=== PATIENT | female | born 1955 | race African-American/Black ===

== ENCOUNTER 2017-07-16 11:23 | Emergency (ER) | payer OTHER ==
[~2017-07-16] VITALS: Ht 162.6 cm; Wt 47.7 kg
[~2017-07-16 11:23] MED LIST: AMLO10TA55 PO; ASPI-1198 PO; CALC650T19 PO; CARV3.1231 PO; CLON1TAB4 PO; DOCU250C16 PO; LISI40TA4 PO; METF1000 PO; RISP2 PO; SIMV10TA6 PO; ZIPR60CA2 PO
[2017-07-16 11:57] LABS: GLUCOSE,POINT OF CARE 122 MG/DL (70-110)
[2017-07-16] MEDS ORDERED: SITA100 PO (12:03)
[2017-07-16] MEDS ORDERED: MEGE40 PO (12:03)
[2017-07-16] MEDS ORDERED: TRAZ-144 PO (12:03)
[2017-07-16] MEDS ORDERED: GLIP10 PO (12:03)
[2017-07-16] MEDS ORDERED: INSU100V12 SQ (12:03)
[2017-07-16 13:19] VITALS: BP 125/78
== END 2017-07-16 13:31 | disposition home or self-care (01) ==
LOC: EMS 11:25
DX: R13.10 Dysphagia, unspecified (principal); E11.9 Type 2 diabetes mellitus without complications; I10 Essential (primary) hypertension; F20.9 Schizophrenia, unspecified; Z85.07 Personal history of malignant neoplasm of pancreas; Z88.2 Allergy status to sulfonamides; Z79.4 Long term (current) use of insulin; Z79.82 Long term (current) use of aspirin
CPT/HCPCS: 82962; 99282

== ENCOUNTER 2017-12-25 11:56 | Emergency (ER) | payer OTHER ==
[~2017-12-25] VITALS: Ht 162.6 cm; Wt 49.1 kg
[~2017-12-25 11:56] MED LIST changes: -CALC650T19 PO; -CLON1TAB4 PO; -DOCU250C16 PO; +GLIP10 PO; +INSU100V12 SQ; +MEGE40 PO; +SITA100 PO; +TRAZ-144 PO; -ZIPR60CA2 PO
[2017-12-25 12:34] LABS: GLUCOSE,POINT OF CARE 214 MG/DL (70-110)
[2017-12-25 14:05] VITALS: BP 125/69
== END 2017-12-25 14:05 | disposition home or self-care (01) ==
LOC: EMS 12:07
DX: R07.9 Chest pain, unspecified (principal); R05 Cough; E11.9 Type 2 diabetes mellitus without complications; I10 Essential (primary) hypertension; F20.9 Schizophrenia, unspecified; Z88.2 Allergy status to sulfonamides; Z79.82 Long term (current) use of aspirin; Z79.899 Other long term (current) drug therapy
CPT/HCPCS: 71046; 99284

== ENCOUNTER 2018-02-04 12:04 | Emergency (ER) | payer OTHER ==
[~2018-02-04] VITALS: Ht 162.6 cm; Wt 45.5 kg
[~2018-02-04 12:04] MED LIST changes: -TRAZ-144 PO; +TRAZ-219 PO
[2018-02-04 13:07] VITALS: BP 132/76
[2018-02-04 13:14] LABS: GLUCOSE,POINT OF CARE 190 MG/DL (70-110)
== END 2018-02-04 14:46 | disposition home or self-care (01) ==
LOC: EMS 12:05
DX: F22 Delusional disorders (principal); E11.9 Type 2 diabetes mellitus without complications; I10 Essential (primary) hypertension; Z88.2 Allergy status to sulfonamides
CPT/HCPCS: 82948; 99283

== ENCOUNTER 2019-07-13 23:11 | Inpatient (IN) | payer OTHER ==
[~2019-07-13] VITALS: Ht 154.9 cm; Wt 40.0 kg
[~2019-07-13 23:11] MED LIST changes: -AMLO10TA55 PO; -CARV3.1231 PO; -GLIP10 PO; -INSU100V12 SQ; -LISI40TA4 PO; -MEGE40 PO; -METF1000 PO; -RISP2 PO; -SIMV10TA6 PO; +SIMV10TA97 PO; -SITA100 PO; -TRAZ-219 PO; +TRAZ-252 PO
[2019-07-13] MEDS ORDERED: LISI10TA7 PO (23:43)
[2019-07-13] MEDS ORDERED: AMLO10TA55 PO (23:43)
[2019-07-13] MEDS ORDERED: GLIP5TAB11 PO (23:43)
[2019-07-14] MEDS ORDERED: SODIUM CHLORIDE IV ONE ×2 (00:15)
[2019-07-14 00:22] LABS: GLUCOSE,POINT OF CARE > 600 MG/DL (70-110)
[2019-07-14 00:32] LABS: BASOPHILS % (AUTO) 0.6 % (0.0-2.0); EOSINOPHILS % (AUTO) 0 % (1.0-6.0); HEMATOCRIT 40.4 % (36-46); HEMOGLOBIN 12.9 g/dL (12.0-16.0); LYMPHOCYTES # (AUTO) 0.8 K/uL (1.0-4.8); LYMPHOCYTES % (AUTO) 3.5 % (22.0-44.0); MEAN CORPUSCULAR HEMOGLOBIN 29.2 pg (26.0-34.0); MEAN CORPUSCULAR HGB CONC 31.8 G/dL (31.0-37.0); MEAN CORPUSCULAR VOLUME 92 fL (80-100); MONOCYTES % (AUTO) 4.5 % (2.0-9.0); NEUTROPHILS # (AUTO) 20.4 K/uL (1.8-7.7); PLATELET COUNT (AUTO) 427 K/uL (150-450)
[2019-07-14 00:33] LABS: NEUTROPHILS % (AUTO) 91.4 % (40.0-70.0)
[2019-07-14 00:40] LABS: AMPHET/METH SCREEN,URINE NEGATIVE (NEGATIVE); BARBITURATE SCREEN, URINE NEGATIVE (NEGATIVE); BENZODIAZEPINES SCREEN,URINE NEGATIVE (NEGATIVE); CANNABINOID SCREEN,URINE NEGATIVE (NEGATIVE); COCAINE SCREEN,URINE NEGATIVE (NEGATIVE); METHADONE SCREEN, URINE NEGATIVE (NEGATIVE); OPIATE SCREEN,URINE NEGATIVE (NEGATIVE)
[2019-07-14 00:40] LABS: ABG A-A DIFF O2 20.1 mmHg (10-20.0); ABG BASE EXCESS -4.5 mmol/L (-2.0-3.0); ABG CARBOXYHEMOGLOBIN 1.9 % (0.0-1.5); ABG HCO3 21.1 mmol/L (22.0-26.0); ABG METHEMOGLOBIN 0.1 % (0.0-1.5); ABG OXYGEN CONTENT 16.7 mL/dL (15.0-23.0); ABG OXYGEN SATURATION 95.7 % (95.0-98.0); ABG OXYHEMOGLOBIN 93.8 % (94.0-100.0); ABG PCO2 38 mmHg (35-45); ABG TOTAL HEMOGLOBIN 12.6 G/dL (12.0-18.0); PO2, ARTERIAL BG 84.2 mmHg (79.0-87.0); SOURCE, BLOOD GAS ARTERIAL; TEMPERATURE, FAHRENHEIT, BG 98.6 FAHREN (96.0-98.6)
[2019-07-14 00:41] LABS: O2 DEVICE,BLOOD GAS ROOM AIR (ROOM AIR); SITE, BLOOD GAS RT RADIAL
[2019-07-14 00:43] LABS: INR 1.1 (0.9-1.1)
[2019-07-14 00:45] LABS: APPEARANCE,URINE CLEAR (CLEAR); BILIRUBIN,URINE NEGATIVE (NEGATIVE); GLUCOSE, URINE (UA) >=1000 mg/dL (NEGATIVE); KETONES,URINE 15 mg/dL (NEGATIVE); LEUKOCYTE ESTERASE ,URINE NEGATIVE (NEGATIVE); NITRATE,URINE NEGATIVE (NEGATIVE); OCCULT BLOOD,URINE TRACE (NEGATIVE); PROTEIN,URINE POS 1+ (NEGATIVE); UROBILINOGEN,URINE 0.2 mg/dL (<=1.0)
[2019-07-14] MEDS ORDERED: HALOPERIDOL LACTATE 5 MG/ML VIAL IM ONE (00:45)
[2019-07-14 00:46] LABS: PHENCYCLIDINE SCREEN,URINE NEGATIVE (NEGATIVE)
[2019-07-14 00:55] LABS: BACTERIA,URINE None Seen /HPF (None Seen); RBC,URINE 0-2 /HPF (0-2); SQUAMOUS EPITHELIAL CELL,UR Rare /LPF (None Seen); WBC,URINE 0-2 /HPF (0-5)
[2019-07-14 01:00] LABS: ALBUMIN 3.7 g/dL (3.4-5.0); BILIRUBIN,TOTAL 0.3 mg/dL (0.1-1.0); CALCIUM, TOTAL 10.2 mg/dL (8.8-10.5); CREATININE 1.21 mg/dL (0.60-1.30); MAGNESIUM 2.5 mg/dL (1.80-2.40); POTASSIUM 4.7 mmol/L (3.5-5.1); TOTAL PROTEIN, SERUM 8.4 g/dL (6.4-8.2)
[2019-07-14 01:01] LABS: LACTIC ACID 2.6 mmol/L (0.4-2.0)
[2019-07-14] MEDS ORDERED: INSULIN REGULAR, HUMAN 100 UNITS/ML SQ ONE (01:30)
[2019-07-14] MEDS ORDERED: VANCOMYCIN HCL 1 GM/D5% WATER 200 ML IV ONE (01:30)
[2019-07-14] MEDS ORDERED: VANCOMYCIN HCL 750 MG in DEXTROSE 5%-WATER 250 ML IV ONE (01:30)
[2019-07-14] MEDS ORDERED: PIPERACILLIN/TAZO 3.375 GM/D5W 50 ML IV ONE (01:30)
[2019-07-14] MEDS ORDERED: ACETAMINOPHEN 650 MG RECTAL SUPPOSITORY PR ONE ×2 (03:00→08:00)
[2019-07-14] MEDS ORDERED: CefTRIAXone SODIUM 2 GM in DEXTROSE 5%-WATER 50 ML IV ONE (03:00)
[2019-07-14 03:07] LABS: GLUCOSE,POINT OF CARE 560 MG/DL (70-110)
[2019-07-14 03:39] LABS: INFLUENZA TYPE A NEGATIVE FOR TYPE A (NEGATIVE); INFLUENZA TYPE B NEGATIVE FOR TYPE B (NEGATIVE)
[2019-07-14] MEDS ORDERED: MIDAZOLAM HCL 2 MG/2 ML VIAL IVP ONE (04:00)
[2019-07-14] MEDS ORDERED: 0.9% SODIUM CHLORIDE 10 ML SYRINGE IVP PRN (05:30)
[2019-07-14] MEDS ORDERED: ACETAMINOPHEN 325 MG TABLET PO PRN ×2 (05:30→08:15)
[2019-07-14 05:38] LABS: GLUCOSE, CSF 408 mg/dL (50-80); TOTAL PROTEIN, CSF 120 mg/dL (15-45)
[2019-07-14 06:10] LABS: GLUCOSE,POINT OF CARE 434 MG/DL (70-110)
[2019-07-14] MEDS ORDERED: WATER IV ONE (06:30)
[2019-07-14] MEDS ORDERED: ACYCLOVIR IV ONE (06:30)
[2019-07-14] MEDS ORDERED: DEXTROSE 5% IV ONE (06:30)
[2019-07-14 06:33] LABS: APPEARANCE2,CSF CLEAR (CLEAR); COLOR2,CSF COLORLESS (COLORLESS); CSF 2ND TUBE NUMBER 4
[2019-07-14 06:44] LABS: APPEARANCE,CSF CLOUDY (CLEAR); CSF TUBE NUMBER 1
[2019-07-14 06:45] LABS: LYMPHOCYTES1,CSF 4.3 %; MONOCYTES1,CSF 1.1 %; NEUTROPHILS1,CSF 94.6 %; RED BLOOD CELL1,CSF 606.7 CMM (0-0); WHITE BLOOD CELL1,CSF 7.2 CMM (0-5)
[2019-07-14 06:47] LABS: COLOR,CSF PINK (COLORLESS)
[2019-07-14 06:48] LABS: LYMPHOCYTES2,CSF 3 %; MONOCYTES2,CSF 1 %; NEUTROPHILS2,CSF 96 %; WHITE BLOOD CELL2,CSF 6.1 CMM (0-5)
[2019-07-14] MEDS ORDERED: DEXTROSE 50%-WATER 25 GM/50 ML SYRINGE IVP PRN (08:15)
[2019-07-14] MEDS ORDERED: BISACODYL 10 MG RECTAL RECTAL SUPPOSITORY PR PRN (08:15)
[2019-07-14] MEDS: FAMOTIDINE 20 MG TABLET PO SCH (09:00)
[2019-07-14] MEDS: DOCUSATE SODIUM 100 MG CAPSULE PO SCH ×2 (09:00→21:22)
[2019-07-14] MEDS: SODIUM CHLORIDE 0.9% 1,000 ML IV SCH (09:04)
[2019-07-14] MEDS: INSULIN GLARGINE,HUM.REC.ANLOG 100 UNITS/ML SQ SCH ×2 (09:05→21:25)
[2019-07-14] MEDS: HEPARIN SODIUM,PORCINE 5,000 UNITS/ML VIAL SQ SCH ×2 (09:05→21:22)
[2019-07-14 09:25] LABS: GLUCOSE,POINT OF CARE 373 MG/DL (70-110)
[2019-07-14] MEDS: PIPERACILLIN SODIUM/TAZOBACTAM 2.25 GM in DEXTROSE 5%-WATER 50 ML IV SCH ×3 (10:10→23:42)
[2019-07-14] MEDS ORDERED: GLIP10 PO (11:12)
[2019-07-14] MEDS ORDERED: LORazepam 2 MG/ML VIAL IVP PRN (11:15)
[2019-07-14 14:30] VITALS: BP 142/83
[2019-07-14 15:01] VITALS: BP 147/72
[2019-07-14 21:29] VITALS: BP 141/86
[2019-07-14 23:49] VITALS: BP 112/53
[2019-07-15 00:45] LABS: GLUCOMETER DEV NAME(LOC) 5S.1; GLUCOSE,POINT OF CARE 221 MG/DL (70-110)
[2019-07-15] MEDS: PIPERACILLIN SODIUM/TAZOBACTAM 2.25 GM in DEXTROSE 5%-WATER 50 ML IV SCH ×4 (03:27→21:06)
[2019-07-15 04:08] LABS: GLUCOMETER DEV NAME(LOC) 5S.2A; GLUCOSE,POINT OF CARE 370 MG/DL (70-110)
[2019-07-15] MEDS: SODIUM CHLORIDE 0.9% 1,000 ML IV SCH (04:37)
[2019-07-15 04:43] VITALS: BP 124/58
[2019-07-15] MEDS: INSULIN LISPRO 100 UNITS/ML SQ PRN ×3 (06:29→20:58)
[2019-07-15 06:34] LABS: CALCIUM, TOTAL 8.3 mg/dL (8.8-10.5); CREATININE 1.16 mg/dL (0.60-1.30); POTASSIUM 3.8 mmol/L (3.5-5.1)
[2019-07-15] MEDS: DOCUSATE SODIUM 100 MG CAPSULE PO SCH ×2 (08:07→21:00)
[2019-07-15] MEDS: HEPARIN SODIUM,PORCINE 5,000 UNITS/ML VIAL SQ SCH ×2 (08:08→21:00)
[2019-07-15] MEDS: FAMOTIDINE 20 MG TABLET PO SCH (08:08)
[2019-07-15] MEDS: INSULIN GLARGINE,HUM.REC.ANLOG 100 UNITS/ML SQ SCH ×3 (08:16→20:57)
[2019-07-15] MEDS: VANCOMYCIN HCL 750 MG in DEXTROSE 5%-WATER 250 ML IV SCH (08:57)
[2019-07-15 11:06] VITALS: BP 127/71
[2019-07-15 15:21] VITALS: BP 147/77
[2019-07-15 19:15] VITALS: BP 140/74
[2019-07-15 20:34] LABS: GLUCOMETER DEV NAME(LOC) 5S.1; GLUCOSE,POINT OF CARE 114 MG/DL (70-110)
[2019-07-15 20:34] LABS: GLUCOMETER DEV NAME(LOC) 5S.1; GLUCOSE,POINT OF CARE 191 MG/DL (70-110)
[2019-07-15 20:35] LABS: GLUCOMETER DEV NAME(LOC) 5S.1; GLUCOSE,POINT OF CARE 288 MG/DL (70-110)
[2019-07-16 00:10] VITALS: BP 138/64
[2019-07-16 00:19] LABS: GLUCOMETER DEV NAME(LOC) 5S.1; GLUCOSE,POINT OF CARE 288 MG/DL (70-110)
[2019-07-16] MEDS: PIPERACILLIN SODIUM/TAZOBACTAM 2.25 GM in DEXTROSE 5%-WATER 50 ML IV SCH ×3 (03:29→16:00)
[2019-07-16 05:16] VITALS: BP 148/74
[2019-07-16] MEDS ORDERED: INSULIN LISPRO 100 UNITS/ML SQ ONE (06:05)
[2019-07-16 06:16] LABS: GLUCOMETER DEV NAME(LOC) 5S.2A; GLUCOSE,POINT OF CARE 211 MG/DL (70-110)
[2019-07-16 08:01] VITALS: BP 142/77
[2019-07-16] MEDS: FAMOTIDINE 20 MG TABLET PO SCH (08:41)
[2019-07-16] MEDS: DOCUSATE SODIUM 100 MG CAPSULE PO SCH (08:41)
[2019-07-16] MEDS: VANCOMYCIN HCL 750 MG in DEXTROSE 5%-WATER 250 ML IV SCH (08:41)
[2019-07-16] MEDS: INSULIN GLARGINE,HUM.REC.ANLOG 100 UNITS/ML SQ SCH (09:00)
[2019-07-16] MEDS: HEPARIN SODIUM,PORCINE 5,000 UNITS/ML VIAL SQ SCH (09:00)
[2019-07-16] MEDS ORDERED: TraZODone HCL 100 MG TABLET PO PRN (10:45)
[2019-07-16] MEDS: INSULIN LISPRO 100 UNITS/ML SQ PRN ×2 (11:24→17:20)
[2019-07-16 14:10] VITALS: BP 139/88
[2019-07-16 15:28] LABS: BASOPHILS % (AUTO) 1.1 % (0.0-2.0); EOSINOPHILS % (AUTO) 1.2 % (1.0-6.0); HEMATOCRIT 33.9 % (36-46); HEMOGLOBIN 11.2 g/dL (12.0-16.0); LYMPHOCYTES # (AUTO) 1.7 K/uL (1.0-4.8); MEAN CORPUSCULAR HEMOGLOBIN 29.7 pg (26.0-34.0); MEAN CORPUSCULAR HGB CONC 33.2 G/dL (31.0-37.0); MEAN CORPUSCULAR VOLUME 89 fL (80-100); MONOCYTES # (AUTO) 0.8 K/uL (0.1-1.0); NEUTROPHILS # (AUTO) 6.7 K/uL (1.8-7.7); NEUTROPHILS % (AUTO) 70.7 % (40.0-70.0); PLATELET COUNT (AUTO) 273 K/uL (150-450); RED BLOOD CELL COUNT(AUTO) 3.79 MIL/uL (4.00-5.20); RED CELL DISTRIBUTION WIDTH 15.2 % (11.5-14.5)
[2019-07-16 15:43] LABS: ANION GAP 5 mmol/L (8-16); CALCIUM, TOTAL 8.6 mg/dL (8.8-10.5); CARBON DIOXIDE 27 mmol/L (22-29); CHLORIDE 99 mmol/L (98-107); CREATININE 0.99 mg/dL (0.60-1.30); GLOMERULAR FILTR. RATE CALC > 60 mL/min (>60); GLUCOSE,RANDOM 298 mg/dL (70-110); POTASSIUM 4.5 mmol/L (3.5-5.1); SODIUM SERUM 131 mmol/L (136-145); UREA NITROGEN, BLOOD 18 mg/dL (7-18)
[2019-07-16 15:50] LABS: ALANINE AMINOTRANSFERASE 56 U/L (12-78); ALBUMIN 2.5 g/dL (3.4-5.0); ALKALINE PHOSPHATASE 85 U/L (46-116); ASPARTATE AMINOTRANSFERASE 33 U/L (15-37); BILIRUBIN,TOTAL 0.2 mg/dL (0.1-1.0); TOTAL PROTEIN, SERUM 6.2 g/dL (6.4-8.2)
[2019-07-16 16:20] VITALS: BP 138/78
[2019-07-16] MEDS ORDERED: GlipiZIDE 10 MG TABLET PO SCH (17:30)
[2019-07-17 00:33] LABS: GLUCOMETER DEV NAME(LOC) 5S.1; GLUCOSE,POINT OF CARE 476 MG/DL (70-110)
[2019-07-17 00:35] LABS: GLUCOMETER DEV NAME(LOC) 5S.1; GLUCOSE,POINT OF CARE 331 MG/DL (70-110)
[2019-07-17 06:53] LABS: GLUCOMETER DEV NAME(LOC) 5S.2A; GLUCOSE,POINT OF CARE 341 MG/DL (70-110)
[2019-07-17] MEDS ORDERED: LISINOPRIL 10 MG TABLET PO SCH (09:00)
[2019-07-17] MEDS ORDERED: AmLODIPine BESYLATE 10 MG TABLET PO SCH (09:00)
[2019-07-17] MEDS ORDERED: ASPIRIN 81 MG CHEWABLE TABLET PO SCH (09:00)
== END 2019-07-16 19:25 | disposition left against medical advice (07) | DRG 720 ==
LOC: EMS 23:12 → ICU 07-14 06:00 → 5S 07-14 14:10
PROVIDERS: ADMIT Internal Medicine; ATTEND Internal Medicine
PROC: 009U3ZX Drainage of Spinal Canal, Percutaneous Approach, Diagnostic (ICD-10-PCS; principal; 2019-07-14)
DX: A41.9 Sepsis, unspecified organism (principal); E43 Unspecified severe protein-calorie malnutrition; E11.65 Type 2 diabetes mellitus with hyperglycemia; R65.20 Severe sepsis without septic shock; F41.9 Anxiety disorder, unspecified; F25.1 Schizoaffective disorder, depressive type; Z53.29 Procedure and treatment not carried out because of patient's decision for other reasons; I10 Essential (primary) hypertension; Z79.899 Other long term (current) drug therapy; Z82.49 Family history of ischemic heart disease and other diseases of the circulatory system; Z83.3 Family history of diabetes mellitus; Z88.2 Allergy status to sulfonamides; Z91.19 Patient's noncompliance with other medical treatment and regimen; Z79.82 Long term (current) use of aspirin; Z85.89 Personal history of malignant neoplasm of other organs and systems; Z79.4 Long term (current) use of insulin; Z68.1 Body mass index [BMI] 19.9 or less, adult
CPT/HCPCS: 36600; 51702; 62270; 70450; 82805; 82945; 82948; 83605; 83735; 84157; 86694; 86735; 86765; 86787; 86788; 86789; 87040; 87070; 87205; 87804; 89051; 93005; J0133; J0696; J1630; J1644; J1815; J2250; J2543; J3370; J7030; J7060

== ENCOUNTER 2019-08-10 08:27 | Inpatient (IN) | payer MEDICARE, OTHER ==
[~2019-08-10] VITALS: Ht 162.6 cm; Wt 41.0 kg
[~2019-08-10 08:27] MED LIST changes: -ASPI-1198 PO; +INSLAN SQ; -SIMV10TA97 PO; -TRAZ-252 PO
[2019-08-10 08:48] LABS: GLUCOSE,POINT OF CARE 244 MG/DL (70-110)
[2019-08-10 09:03] LABS: BASOPHILS % (AUTO) 1.5 % (0.0-2.0); EOSINOPHILS % (AUTO) 0.1 % (1.0-6.0); HEMATOCRIT 42.6 % (36-46); HEMOGLOBIN 13.9 g/dL (12.0-16.0); LYMPHOCYTES % (AUTO) 9.4 % (22.0-44.0); MEAN CORPUSCULAR HEMOGLOBIN 29.1 pg (26.0-34.0); MEAN CORPUSCULAR HGB CONC 32.6 G/dL (31.0-37.0); MEAN CORPUSCULAR VOLUME 89 fL (80-100); MONOCYTES # (AUTO) 0.3 K/uL (0.1-1.0); MONOCYTES % (AUTO) 2.7 % (2.0-9.0); NEUTROPHILS # (AUTO) 9.5 K/uL (1.8-7.7); RED BLOOD CELL COUNT(AUTO) 4.76 MIL/uL (4.00-5.20); RED CELL DISTRIBUTION WIDTH 16.8 % (11.5-14.5)
[2019-08-10 09:09] LABS: NEUTROPHILS % (AUTO) 86.3 % (40.0-70.0)
[2019-08-10 09:13] LABS: ANION GAP 20 mmol/L (8-16); CALCIUM, TOTAL 9.8 mg/dL (8.8-10.5); CARBON DIOXIDE 19 mmol/L (22-29); CHLORIDE 98 mmol/L (98-107); CREATININE 0.92 mg/dL (0.60-1.30); GLOMERULAR FILTR. RATE CALC > 60 mL/min (>60); GLUCOSE,RANDOM 244 mg/dL (70-110); POTASSIUM 4.7 mmol/L (3.5-5.1); SODIUM SERUM 137 mmol/L (136-145); UREA NITROGEN, BLOOD 28 mg/dL (7-18)
[2019-08-10 09:20] LABS: ALANINE AMINOTRANSFERASE 24 U/L (12-78); ALBUMIN 3.5 g/dL (3.4-5.0); ALKALINE PHOSPHATASE 113 U/L (46-116); ASPARTATE AMINOTRANSFERASE 15 U/L (15-37); BILIRUBIN,TOTAL 0.5 mg/dL (0.1-1.0); CREATINE KINASE, TOTAL ONLY 43 U/L (26-192); TOTAL PROTEIN, SERUM 7.8 g/dL (6.4-8.2); TROPONIN I 0.33 ng/mL (0.00-0.05)
[2019-08-10 09:28] LABS: PLATELET COUNT (AUTO) 640 K/uL (150-450); PLATELET MORPHOLOGY COMMENT GIANT PLTS PRESENT
[2019-08-10 09:39] LABS: B-TYPE NATRIURETIC PEPTIDE 26 pg/mL (0-100)
[2019-08-10 10:00] LABS: AMMONIA < 10 umol/L (11-32)
[2019-08-10 10:05] LABS: PROTHROMBIN TIME 10.3 SEC (9.4-11.6)
[2019-08-10 11:38] LABS: APPEARANCE,URINE CLEAR (CLEAR); BILIRUBIN,URINE NEGATIVE (NEGATIVE); GLUCOSE, URINE (UA) >=1000 mg/dL (NEGATIVE); KETONES,URINE >=80 mg/dL (NEGATIVE); LEUKOCYTE ESTERASE ,URINE NEGATIVE (NEGATIVE); NITRATE,URINE NEGATIVE (NEGATIVE); OCCULT BLOOD,URINE NEGATIVE (NEGATIVE); PH,URINE 5.5 (5.0-8.0); PROTEIN,URINE TRACE (NEGATIVE); UROBILINOGEN,URINE 0.2 mg/dL (<=1.0)
[2019-08-10 11:55] LABS: AMPHET/METH SCREEN,URINE NEGATIVE (NEGATIVE); BARBITURATE SCREEN, URINE NEGATIVE (NEGATIVE); BENZODIAZEPINES SCREEN,URINE NEGATIVE (NEGATIVE); CANNABINOID SCREEN,URINE NEGATIVE (NEGATIVE); COCAINE SCREEN,URINE NEGATIVE (NEGATIVE); METHADONE SCREEN, URINE NEGATIVE (NEGATIVE); OPIATE SCREEN,URINE NEGATIVE (NEGATIVE); PHENCYCLIDINE SCREEN,URINE NEGATIVE (NEGATIVE)
[2019-08-10 12:07] LABS: RBC,URINE None Seen /HPF (0-2); WBC,URINE None Seen /HPF (0-5)
[2019-08-10 12:08] LABS: BACTERIA,URINE None Seen /HPF (None Seen)
[2019-08-10] MEDS ORDERED: ACETAMINOPHEN 325 MG TABLET PO PRN (14:45)
[2019-08-10] MEDS ORDERED: SODIUM CHLORIDE 0.9% 1,000 ML IV ONE (15:00)
[2019-08-10] MEDS ORDERED: DEXTROSE 50%-WATER 25 GM/50 ML SYRINGE IVP PRN (15:00)
[2019-08-10 18:39] LABS: GLUCOSE,POINT OF CARE 404 MG/DL (70-110)
[2019-08-10] MEDS: INSULIN LISPRO 100 UNITS/ML SQ PRN ×2 (19:05→21:48)
[2019-08-10] MEDS ORDERED: INSULIN GLARGINE,HUM.REC.ANLOG 100 UNITS/ML SQ SCH (21:00)
[2019-08-10] MEDS: DOCUSATE SODIUM 100 MG CAPSULE PO SCH (21:31)
[2019-08-10] MEDS: HEPARIN SODIUM,PORCINE 5,000 UNITS/ML VIAL SQ SCH (21:31)
[2019-08-10 22:12] VITALS: BP 161/85
[2019-08-10 22:45] VITALS: BP 157/98
[2019-08-10 23:48] VITALS: BP 152/72
[2019-08-11 01:22] LABS: GLUCOMETER DEV NAME(LOC) 5N.1; GLUCOSE,POINT OF CARE 177 MG/DL (70-110)
[2019-08-11 05:44] VITALS: BP 155/79
[2019-08-11] MEDS ORDERED: INFLUENZA VIRUS VACCINE QVS 2019-20 (3YR+)/PF 60 MCG/0.5 ML SYRINGE IM ONE (06:00)
[2019-08-11 06:22] LABS: GLUCOMETER DEV NAME(LOC) 5S.2A; GLUCOSE,POINT OF CARE 275 MG/DL (70-110)
[2019-08-11] MEDS: INSULIN LISPRO 100 UNITS/ML SQ PRN ×4 (06:27→22:21)
[2019-08-11 08:07] VITALS: BP 153/79
[2019-08-11] MEDS: FAMOTIDINE 20 MG TABLET PO SCH (09:08)
[2019-08-11] MEDS: DOCUSATE SODIUM 100 MG CAPSULE PO SCH ×2 (09:08→22:25)
[2019-08-11] MEDS: HEPARIN SODIUM,PORCINE 5,000 UNITS/ML VIAL SQ SCH ×2 (09:08→22:18)
[2019-08-11 10:23] LABS: BASOPHILS % (AUTO) 0.9 % (0.0-2.0); EOSINOPHILS % (AUTO) 0.4 % (1.0-6.0); HEMATOCRIT 39.2 % (36-46); HEMOGLOBIN 12.7 g/dL (12.0-16.0); LYMPHOCYTES # (AUTO) 1.7 K/uL (1.0-4.8); LYMPHOCYTES % (AUTO) 13.5 % (22.0-44.0); MEAN CORPUSCULAR HEMOGLOBIN 28.7 pg (26.0-34.0); MEAN CORPUSCULAR HGB CONC 32.5 G/dL (31.0-37.0); MEAN CORPUSCULAR VOLUME 88 fL (80-100); MONOCYTES % (AUTO) 7.7 % (2.0-9.0); NEUTROPHILS % (AUTO) 77.5 % (40.0-70.0); PLATELET COUNT (AUTO) 555 K/uL (150-450); RED BLOOD CELL COUNT(AUTO) 4.44 MIL/uL (4.00-5.20); RED CELL DISTRIBUTION WIDTH 16.7 % (11.5-14.5)
[2019-08-11 10:30] LABS: ANION GAP 9 mmol/L (8-16); CALCIUM, TOTAL 9.4 mg/dL (8.8-10.5); CARBON DIOXIDE 25 mmol/L (22-29); CHLORIDE 99 mmol/L (98-107); CREATININE 0.84 mg/dL (0.60-1.30); GLOMERULAR FILTR. RATE CALC > 60 mL/min (>60); GLUCOSE,RANDOM 147 mg/dL (70-110); POTASSIUM 4.4 mmol/L (3.5-5.1); SODIUM SERUM 133 mmol/L (136-145); UREA NITROGEN, BLOOD 23 mg/dL (7-18)
[2019-08-11 11:48] VITALS: BP 182/76
[2019-08-11] MEDS ORDERED: HydrALAZINE HCL 20 MG/ML VIAL IVP PRN (13:30)
[2019-08-11 16:13] VITALS: BP 178/77
[2019-08-11 17:23] LABS: GLUCOMETER DEV NAME(LOC) 5N.1; GLUCOSE,POINT OF CARE 231 MG/DL (70-110)
[2019-08-11 17:43] LABS: GLUCOMETER DEV NAME(LOC) 5N.1; GLUCOSE,POINT OF CARE 360 MG/DL (70-110)
[2019-08-11 20:47] VITALS: BP 155/66
[2019-08-11] MEDS: INSULIN GLARGINE,HUM.REC.ANLOG 100 UNITS/ML SQ SCH (22:20)
[2019-08-11 23:50] LABS: GLUCOMETER DEV NAME(LOC) 5N.1; GLUCOSE,POINT OF CARE 262 MG/DL (70-110)
[2019-08-12 00:57] VITALS: BP 161/77
[2019-08-12 04:30] VITALS: BP 149/74
[2019-08-12 07:17] LABS: CHOL/HDL RATIO 2.6 (3.9-5.7)
[2019-08-12 07:49] VITALS: BP 128/62
[2019-08-12] MEDS: INSULIN GLARGINE,HUM.REC.ANLOG 100 UNITS/ML SQ SCH ×3 (09:00→21:00)
[2019-08-12] MEDS: HEPARIN SODIUM,PORCINE 5,000 UNITS/ML VIAL SQ SCH ×2 (09:28→21:00)
[2019-08-12] MEDS: FAMOTIDINE 20 MG TABLET PO SCH (09:32)
[2019-08-12] MEDS: DOCUSATE SODIUM 100 MG CAPSULE PO SCH ×2 (09:32→21:00)
[2019-08-12] MEDS: INSULIN LISPRO 100 UNITS/ML SQ PRN ×2 (11:30→18:19)
[2019-08-12 11:35] LABS: GLUCOMETER DEV NAME(LOC) 5S.2A; GLUCOSE,POINT OF CARE 420 MG/DL (70-110)
[2019-08-12 11:35] LABS: GLUCOMETER DEV NAME(LOC) 5S.2A; GLUCOSE,POINT OF CARE 76 MG/DL (70-110)
[2019-08-12 11:37] VITALS: BP 108/64
[2019-08-12 17:58] LABS: GLUCOMETER DEV NAME(LOC) 5S.1; GLUCOSE,POINT OF CARE 364 MG/DL (70-110)
[2019-08-12 18:25] LABS: GLUCOMETER DEV NAME(LOC) 5S.2A; GLUCOSE,POINT OF CARE 292 MG/DL (70-110)
[2019-08-12 18:25] LABS: GLUCOMETER DEV NAME(LOC) 5S.2A; GLUCOSE,POINT OF CARE 443 MG/DL (70-110)
[2019-08-12 18:25] LABS: GLUCOMETER DEV NAME(LOC) 5S.2A; GLUCOSE,POINT OF CARE 389 MG/DL (70-110)
[2019-08-12] MEDS ORDERED: DEXTROSE 50%-WATER 25 GM/50 ML SYRINGE IVP PRN (19:00)
[2019-08-12 19:36] VITALS: BP 107/60
[2019-08-12] MEDS: ATORVASTATIN CALCIUM 20 MG TABLET PO SCH (21:00)
[2019-08-12] MEDS: BIMATOPROST 0.01% 2.5 ML OPHTHALMIC SOLUTION OU SCH (21:00)
[2019-08-12] MEDS: BRIMONIDINE TARTRATE 0.15% 5 ML OPHTHALMIC SOLUTION OU SCH (21:00)
[2019-08-13 00:04] VITALS: BP 158/75
[2019-08-13 06:07] VITALS: BP 120/69
[2019-08-13] MEDS: INSULIN LISPRO 100 UNITS/ML SQ PRN ×4 (06:13→21:34)
[2019-08-13 07:02] LABS: GLUCOMETER DEV NAME(LOC) 5S.1; GLUCOSE,POINT OF CARE 277 MG/DL (70-110)
[2019-08-13 07:13] LABS: GLUCOMETER DEV NAME(LOC) 5S.2A; GLUCOSE,POINT OF CARE 341 MG/DL (70-110)
[2019-08-13 08:28] VITALS: BP 137/60
[2019-08-13] MEDS: INSULIN GLARGINE,HUM.REC.ANLOG 100 UNITS/ML SQ SCH ×3 (09:00→21:33)
[2019-08-13] MEDS: BRIMONIDINE TARTRATE 0.15% 5 ML OPHTHALMIC SOLUTION OU SCH ×2 (09:00→21:30)
[2019-08-13] MEDS: HEPARIN SODIUM,PORCINE 5,000 UNITS/ML VIAL SQ SCH ×2 (09:17→21:30)
[2019-08-13] MEDS: FAMOTIDINE 20 MG TABLET PO SCH (09:17)
[2019-08-13] MEDS: ASPIRIN 81 MG CHEWABLE TABLET PO SCH (09:17)
[2019-08-13] MEDS: DOCUSATE SODIUM 100 MG CAPSULE PO SCH ×2 (09:26→21:29)
[2019-08-13] MEDS ORDERED: SODIUM CHLORIDE 0.9% 1,000 ML ONE (12:08)
[2019-08-13] MEDS ORDERED: INSULIN LISPRO 100 UNITS/ML SQ ONE (12:30)
[2019-08-13] MEDS ORDERED: RisperiDONE 2 MG TABLET PO ONE (15:45)
[2019-08-13 15:53] LABS: BASOPHILS % (AUTO) 1.4 % (0.0-2.0); EOSINOPHILS % (AUTO) 1.3 % (1.0-6.0); HEMATOCRIT 33.1 % (36-46); HEMOGLOBIN 10.8 g/dL (12.0-16.0); LYMPHOCYTES # (AUTO) 1.9 K/uL (1.0-4.8); LYMPHOCYTES % (AUTO) 22.4 % (22.0-44.0); MEAN CORPUSCULAR HEMOGLOBIN 28.7 pg (26.0-34.0); MEAN CORPUSCULAR HGB CONC 32.7 G/dL (31.0-37.0); MEAN CORPUSCULAR VOLUME 88 fL (80-100); MONOCYTES # (AUTO) 0.9 K/uL (0.1-1.0); MONOCYTES % (AUTO) 10.2 % (2.0-9.0); NEUTROPHILS # (AUTO) 5.5 K/uL (1.8-7.7); NEUTROPHILS % (AUTO) 64.7 % (40.0-70.0); PLATELET COUNT (AUTO) 488 K/uL (150-450); RED BLOOD CELL COUNT(AUTO) 3.78 MIL/uL (4.00-5.20); RED CELL DISTRIBUTION WIDTH 16.2 % (11.5-14.5)
[2019-08-13 16:02] LABS: ANION GAP 7 mmol/L (8-16); CALCIUM, TOTAL 8.3 mg/dL (8.8-10.5); CARBON DIOXIDE 26 mmol/L (22-29); CHLORIDE 96 mmol/L (98-107); CREATININE 0.86 mg/dL (0.60-1.30); GLOMERULAR FILTR. RATE CALC > 60 mL/min (>60); GLUCOSE,RANDOM 221 mg/dL (70-110); POTASSIUM 4.6 mmol/L (3.5-5.1); SODIUM SERUM 129 mmol/L (136-145); UREA NITROGEN, BLOOD 27 mg/dL (7-18)
[2019-08-13 16:08] LABS: ALANINE AMINOTRANSFERASE 19 U/L (12-78); ALBUMIN 2.6 g/dL (3.4-5.0); ALKALINE PHOSPHATASE 76 U/L (46-116); ASPARTATE AMINOTRANSFERASE 11 U/L (15-37); BILIRUBIN,TOTAL 0.1 mg/dL (0.1-1.0)
[2019-08-13] MEDS: BIMATOPROST 0.01% 2.5 ML OPHTHALMIC SOLUTION OU SCH (21:29)
[2019-08-13] MEDS: TraZODone HCL 100 MG TABLET PO SCH (21:29)
[2019-08-13] MEDS: ATORVASTATIN CALCIUM 20 MG TABLET PO SCH (21:29)
[2019-08-13 21:30] VITALS: BP 129/62
[2019-08-14 00:11] LABS: GLUCOMETER DEV NAME(LOC) 5S.1; GLUCOSE,POINT OF CARE 509 MG/DL (70-110)
[2019-08-14 00:11] LABS: GLUCOMETER DEV NAME(LOC) 5S.1; GLUCOSE,POINT OF CARE 509 MG/DL (70-110)
[2019-08-14 00:11] LABS: GLUCOMETER DEV NAME(LOC) 5S.1; GLUCOSE,POINT OF CARE 396 MG/DL (70-110)
[2019-08-14 00:11] LABS: GLUCOMETER DEV NAME(LOC) 5S.1; GLUCOSE,POINT OF CARE 322 MG/DL (70-110)
[2019-08-14 00:11] LABS: GLUCOMETER DEV NAME(LOC) 5S.1; GLUCOSE,POINT OF CARE 403 MG/DL (70-110)
[2019-08-14 04:56] VITALS: BP 133/73
[2019-08-14 07:52] LABS: MAGNESIUM 2.3 mg/dL (1.80-2.40); PHOSPHORUS 2.6 mg/dL (2.5-4.9)
[2019-08-14 08:05] VITALS: BP 140/73
[2019-08-14] MEDS: FAMOTIDINE 20 MG TABLET PO SCH (09:10)
[2019-08-14] MEDS: DOCUSATE SODIUM 100 MG CAPSULE PO SCH ×2 (09:11→20:40)
[2019-08-14] MEDS: ASPIRIN 81 MG CHEWABLE TABLET PO SCH (09:11)
[2019-08-14] MEDS: HEPARIN SODIUM,PORCINE 5,000 UNITS/ML VIAL SQ SCH ×2 (09:12→20:40)
[2019-08-14] MEDS: MULTIVITAMINS WITH MINERALS, THERAPEUTIC TABLET PO SCH (09:25)
[2019-08-14] MEDS: BRIMONIDINE TARTRATE 0.15% 5 ML OPHTHALMIC SOLUTION OU SCH ×2 (09:32→20:41)
[2019-08-14] MEDS: INSULIN GLARGINE,HUM.REC.ANLOG 100 UNITS/ML SQ SCH ×2 (10:53→20:39)
[2019-08-14 11:13] VITALS: BP 151/68
[2019-08-14] MEDS: INSULIN LISPRO 100 UNITS/ML SQ PRN ×3 (13:14→20:37)
[2019-08-14 15:26] VITALS: BP 126/59
[2019-08-14 19:29] VITALS: BP 133/64
[2019-08-14] MEDS: RisperiDONE 2 MG TABLET PO SCH (20:39)
[2019-08-14] MEDS: TraZODone HCL 100 MG TABLET PO SCH (20:39)
[2019-08-14] MEDS: BIMATOPROST 0.01% 2.5 ML OPHTHALMIC SOLUTION OU SCH (20:40)
[2019-08-14] MEDS: ATORVASTATIN CALCIUM 20 MG TABLET PO SCH (20:40)
[2019-08-15 04:14] VITALS: BP 131/67
[2019-08-15 06:08] LABS: GLUCOMETER DEV NAME(LOC) 5S.2A; GLUCOSE,POINT OF CARE 244 MG/DL (70-110)
[2019-08-15 06:08] LABS: GLUCOMETER DEV NAME(LOC) 5S.2A; GLUCOSE,POINT OF CARE 107 MG/DL (70-110)
[2019-08-15 06:09] LABS: GLUCOMETER DEV NAME(LOC) 5S.2A; GLUCOSE,POINT OF CARE 213 MG/DL (70-110)
[2019-08-15] MEDS: DOCUSATE SODIUM 100 MG CAPSULE PO SCH ×2 (08:39→20:49)
[2019-08-15] MEDS: ASPIRIN 81 MG CHEWABLE TABLET PO SCH (08:39)
[2019-08-15] MEDS: MULTIVITAMINS WITH MINERALS, THERAPEUTIC TABLET PO SCH (08:39)
[2019-08-15] MEDS: HEPARIN SODIUM,PORCINE 5,000 UNITS/ML VIAL SQ SCH ×2 (08:39→20:50)
[2019-08-15] MEDS: FAMOTIDINE 20 MG TABLET PO SCH (08:39)
[2019-08-15] MEDS: INSULIN GLARGINE,HUM.REC.ANLOG 100 UNITS/ML SQ SCH ×2 (08:44→20:53)
[2019-08-15] MEDS: MAGNESIUM HYDROXIDE SUSPENSION 30 ML UDCUP PO PRN ×2 (08:46→08:52)
[2019-08-15] MEDS: BRIMONIDINE TARTRATE 0.15% 5 ML OPHTHALMIC SOLUTION OU SCH ×2 (09:00→20:49)
[2019-08-15 09:34] VITALS: BP 145/64
[2019-08-15] MEDS: INSULIN LISPRO 100 UNITS/ML SQ PRN ×2 (12:04→17:39)
[2019-08-15 12:55] VITALS: BP 131/72
[2019-08-15 16:04] VITALS: BP 143/70
[2019-08-15 18:14] LABS: GLUCOMETER DEV NAME(LOC) 5S.2A; GLUCOSE,POINT OF CARE 368 MG/DL (70-110)
[2019-08-15 18:14] LABS: GLUCOMETER DEV NAME(LOC) 5S.1; GLUCOSE,POINT OF CARE 337 MG/DL (70-110)
[2019-08-15 18:14] LABS: GLUCOMETER DEV NAME(LOC) 5S.1; GLUCOSE,POINT OF CARE 69 MG/DL (70-110)
[2019-08-15 18:15] LABS: GLUCOMETER DEV NAME(LOC) 5S.1; GLUCOSE,POINT OF CARE 139 MG/DL (70-110)
[2019-08-15 18:15] LABS: GLUCOMETER DEV NAME(LOC) 5S.1; GLUCOSE,POINT OF CARE 259 MG/DL (70-110)
[2019-08-15 18:15] LABS: GLUCOMETER DEV NAME(LOC) 5S.1; GLUCOSE,POINT OF CARE 349 MG/DL (70-110)
[2019-08-15 18:15] LABS: GLUCOMETER DEV NAME(LOC) 5S.1; GLUCOSE,POINT OF CARE 129 MG/DL (70-110)
[2019-08-15 20:03] VITALS: BP 137/68
[2019-08-15] MEDS: TraZODone HCL 100 MG TABLET PO SCH (20:49)
[2019-08-15] MEDS: BIMATOPROST 0.01% 2.5 ML OPHTHALMIC SOLUTION OU SCH (20:49)
[2019-08-15] MEDS: ATORVASTATIN CALCIUM 20 MG TABLET PO SCH (20:50)
[2019-08-15] MEDS: RisperiDONE 2 MG TABLET PO SCH (20:50)
[2019-08-15] MEDS ORDERED: LevETIRAcetam 500 MG in DEXTROSE 5%-WATER 100 ML IV ONE (22:30)
[2019-08-15 22:32] LABS: GLUCOMETER DEV NAME(LOC) 5S.2A; GLUCOSE,POINT OF CARE 222 MG/DL (70-110)
[2019-08-15] MEDS ORDERED: SODIUM CHLORIDE 0.9% 1,000 ML ONE (22:43)
[2019-08-16] VITALS (13 sets, daily range): BP systolic 138–198; BP diastolic 64–87
[2019-08-16] MEDS: INSULIN LISPRO 100 UNITS/ML SQ PRN ×3 (06:31→17:55)
[2019-08-16 07:31] LABS: GLUCOMETER DEV NAME(LOC) 5S.1; GLUCOSE,POINT OF CARE 193 MG/DL (70-110)
[2019-08-16] MEDS: INSULIN GLARGINE,HUM.REC.ANLOG 100 UNITS/ML SQ SCH ×2 (09:00→21:00)
[2019-08-16] MEDS: BRIMONIDINE TARTRATE 0.15% 5 ML OPHTHALMIC SOLUTION OU SCH (09:04)
[2019-08-16] MEDS: MULTIVITAMINS WITH MINERALS, THERAPEUTIC TABLET PO SCH (09:04)
[2019-08-16] MEDS: ASPIRIN 81 MG CHEWABLE TABLET PO SCH (09:04)
[2019-08-16] MEDS: HEPARIN SODIUM,PORCINE 5,000 UNITS/ML VIAL SQ SCH (09:05)
[2019-08-16] MEDS: FAMOTIDINE 20 MG TABLET PO SCH (09:05)
[2019-08-16] MEDS: DOCUSATE SODIUM 100 MG CAPSULE PO SCH (09:05)
[2019-08-16] MEDS: LevETIRAcetam 500 MG TABLET PO SCH (09:05)
[2019-08-16 10:30] LABS: GLUCOMETER DEV NAME(LOC) 5S.1; GLUCOSE,POINT OF CARE 124 MG/DL (70-110)
[2019-08-16 14:44] LABS: GLUCOMETER DEV NAME(LOC) 5S.1; GLUCOSE,POINT OF CARE 258 MG/DL (70-110)
[2019-08-17 01:00] VITALS: BP 134/68
[2019-08-17] MEDS: HEPARIN SODIUM,PORCINE 5,000 UNITS/ML VIAL SQ SCH ×3 (01:01→21:00)
[2019-08-17] MEDS: RisperiDONE 2 MG TABLET PO SCH ×2 (01:01→21:00)
[2019-08-17] MEDS: ATORVASTATIN CALCIUM 20 MG TABLET PO SCH ×2 (01:01→21:46)
[2019-08-17] MEDS: LevETIRAcetam 500 MG TABLET PO SCH ×3 (01:02→21:46)
[2019-08-17] MEDS: BRIMONIDINE TARTRATE 0.15% 5 ML OPHTHALMIC SOLUTION OU SCH ×3 (01:02→21:47)
[2019-08-17] MEDS: TraZODone HCL 100 MG TABLET PO SCH ×2 (01:02→21:00)
[2019-08-17] MEDS: DOCUSATE SODIUM 100 MG CAPSULE PO SCH ×3 (01:02→21:46)
[2019-08-17] MEDS: BIMATOPROST 0.01% 2.5 ML OPHTHALMIC SOLUTION OU SCH ×2 (01:03→21:47)
[2019-08-17 04:57] VITALS: BP 130/65
[2019-08-17 06:00] LABS: GLUCOMETER DEV NAME(LOC) 5S.2A; GLUCOSE,POINT OF CARE 293 MG/DL (70-110)
[2019-08-17] MEDS: INSULIN LISPRO 100 UNITS/ML SQ PRN (06:04)
[2019-08-17 06:16] LABS: GLUCOMETER DEV NAME(LOC) 5S.2A; GLUCOSE,POINT OF CARE 352 MG/DL (70-110)
[2019-08-17 07:23] VITALS: BP 129/66
[2019-08-17] MEDS: FAMOTIDINE 20 MG TABLET PO SCH (09:10)
[2019-08-17] MEDS: ASPIRIN 81 MG CHEWABLE TABLET PO SCH (09:10)
[2019-08-17] MEDS: MULTIVITAMINS WITH MINERALS, THERAPEUTIC TABLET PO SCH (09:11)
[2019-08-17] MEDS: INSULIN GLARGINE,HUM.REC.ANLOG 100 UNITS/ML SQ SCH ×2 (09:25→21:00)
[2019-08-17 10:50] VITALS: BP 114/60
[2019-08-17 15:26] VITALS: BP 126/66
[2019-08-17] MEDS ORDERED: ATOR40TA28 PO (17:19)
[2019-08-17] MEDS ORDERED: RISP2TAB22 PO (17:19)
[2019-08-17] MEDS ORDERED: ASPI1CPM8 PO (17:20)
[2019-08-17] MEDS ORDERED: LEVE250T55 PO (17:20)
[2019-08-17] MEDS ORDERED: ASPI81TA39 PO (17:21)
[2019-08-17] MEDS ORDERED: BIMA12.5OS OU (17:21)
[2019-08-17] MEDS ORDERED: BRIM155OS OU (17:22)
[2019-08-17] MEDS ORDERED: DOCU-275 PO (17:23)
[2019-08-17] MEDS ORDERED: MULT-248 PO (17:25)
[2019-08-17] MEDS ORDERED: TRAZ-257 PO (17:26)
[2019-08-17 19:37] VITALS: BP 117/65
[2019-08-17 20:22] LABS: GLUCOMETER DEV NAME(LOC) 5S.1; GLUCOSE,POINT OF CARE 67 MG/DL (70-110)
[2019-08-17 20:38] LABS: GLUCOMETER DEV NAME(LOC) 5S.2A; GLUCOSE,POINT OF CARE 191 MG/DL (70-110)
[2019-08-18 08:06] LABS: GLUCOMETER DEV NAME(LOC) 5S.2A; GLUCOSE,POINT OF CARE 129 MG/DL (70-110)
== END 2019-08-17 22:40 | DRG 64 ==
LOC: EMS 08:29 → 5S 16:48
PROVIDERS: ADMIT Internal Medicine; ATTEND Internal Medicine
DX: I63.9 Cerebral infarction, unspecified (principal); E43 Unspecified severe protein-calorie malnutrition; G93.40 Encephalopathy, unspecified; Z68.1 Body mass index [BMI] 19.9 or less, adult; R29.700 NIHSS score 0; F20.9 Schizophrenia, unspecified; I10 Essential (primary) hypertension; E11.65 Type 2 diabetes mellitus with hyperglycemia; D72.829 Elevated white blood cell count, unspecified; H53.40 Unspecified visual field defects; E78.5 Hyperlipidemia, unspecified; Z79.4 Long term (current) use of insulin; Z88.2 Allergy status to sulfonamides; Z82.49 Family history of ischemic heart disease and other diseases of the circulatory system; Z91.19 Patient's noncompliance with other medical treatment and regimen
CPT/HCPCS: 70450; 83605; 83735; 84100; 87040; 87081; 90686; 93005; 93880; 97116; 97162; 97530; G0480; J0360; J0712; J1644; J1815; J7030; J7060

== ENCOUNTER 2022-01-01 16:41 | Emergency (ER) | payer MEDICARE, OTHER ==
[~2022-01-01] VITALS: Ht 162.6 cm; Wt 59.1 kg
[~2022-01-01 16:41] MED LIST changes: +ASPI1CPM8 PO; +ASPI81TA39 PO; +ATOR40TA28 PO; +BIMA2.5D4 OU; +BRIM155OS OU; +DOCU-385 PO; +LEVE250T4 PO; +MULT-248 PO; +RISP2TAB86 PO; +TRAZ-257 PO
[2022-01-01 17:12] VITALS: BP 172/83
== END 2022-01-01 18:52 | disposition left against medical advice (07) ==
LOC: EMS 16:41
DX: R42 Dizziness and giddiness (principal); I10 Essential (primary) hypertension; E11.9 Type 2 diabetes mellitus without complications; F20.9 Schizophrenia, unspecified; F17.210 Nicotine dependence, cigarettes, uncomplicated; Z88.2 Allergy status to sulfonamides; Z79.4 Long term (current) use of insulin; Z79.899 Other long term (current) drug therapy
CPT/HCPCS: 71045; 93005; 99284

== ENCOUNTER 2022-05-14 18:28 | Inpatient (IN) | payer MEDICARE, OTHER ==
[~2022-05-14] VITALS: Ht 162.6 cm; Wt 44.6 kg
[2022-05-14 20:46] LABS: GLUCOSE,POINT OF CARE 499 MG/DL (70-110)
[2022-05-14] MEDS ORDERED: SODIUM CHLORIDE 0.9% 1,000 ML IV ONE (22:15)
[2022-05-14] MEDS ORDERED: INSULIN REGULAR, HUMAN 100 UNITS/ML IVP ONE (22:30)
[2022-05-14 22:47] LABS: BASOPHILS % (AUTO) 1.1 % (0.0-2.0); EOSINOPHILS % (AUTO) 2.4 % (1.0-6.0); HEMATOCRIT 40.2 % (36-46); LYMPHOCYTES # (AUTO) 1.8 K/uL (1.0-4.8); LYMPHOCYTES % (AUTO) 25.3 % (22.0-44.0); MEAN CORPUSCULAR HGB CONC 32.2 G/dL (31.0-37.0); MEAN CORPUSCULAR VOLUME 90 fL (80-100); MONOCYTES # (AUTO) 0.6 K/uL (0.1-1.0); MONOCYTES % (AUTO) 8.7 % (2.0-9.0); NEUTROPHILS # (AUTO) 4.4 K/uL (1.8-7.7); NEUTROPHILS % (AUTO) 62.5 % (40.0-70.0); PLATELET COUNT (AUTO) 295 K/uL (150-450); RED BLOOD CELL COUNT(AUTO) 4.47 MIL/uL (4.00-5.20); RED CELL DISTRIBUTION WIDTH 14.9 % (11.5-14.5)
[2022-05-14 23:04] LABS: ALANINE AMINOTRANSFERASE 12 U/L (12-78); ALBUMIN 3.3 g/dL (3.4-5.0); ALKALINE PHOSPHATASE 98 U/L (46-116); ANION GAP 8 mmol/L (8-16); ASPARTATE AMINOTRANSFERASE 7 U/L (15-37); BILIRUBIN,TOTAL 0.1 mg/dL (0.1-1.0); CALCIUM, TOTAL 10.3 mg/dL (8.8-10.5); CARBON DIOXIDE 26 mmol/L (22-29); CHLORIDE 102 mmol/L (98-107); CREATININE 0.88 mg/dL (0.60-1.30); POTASSIUM 4.8 mmol/L (3.5-5.1); SODIUM SERUM 136 mmol/L (136-145); TOTAL PROTEIN, SERUM 7.3 g/dL (6.4-8.2); UREA NITROGEN, BLOOD 32 mg/dL (7-18)
[2022-05-14 23:06] LABS: B-TYPE NATRIURETIC PEPTIDE 25 pg/mL (0-100)
[2022-05-14 23:07] LABS: GLOMERULAR FILTR. RATE CALC > 60 mL/min (>60); GLUCOSE,RANDOM 483 mg/dL (70-110)
[2022-05-15] MEDS ORDERED: LORazepam 2 MG/ML VIAL IVP ONE (00:45)
[2022-05-15] MEDS ORDERED: HALOPERIDOL LACTATE 5 MG/ML VIAL IVP PRN (01:00)
[2022-05-15] MEDS ORDERED: SODIUM CHLORIDE 0.9% 1,000 ML IV SCH (01:00)
[2022-05-15] MEDS ORDERED: ASPIRIN 325 MG TABLET PO ONE (01:00)
[2022-05-15] MEDS ORDERED: ONDANSETRON HCL 4 MG/2 ML VIAL IVP PRN (01:00)
[2022-05-15] MEDS ORDERED: ACETAMINOPHEN 325 MG TABLET PO PRN (01:00)
[2022-05-15 01:15] LABS: PROTHROMBIN TIME 10.5 SEC (9.4-11.6)
[2022-05-15] MEDS ORDERED: NITROGLYCERIN 2% (1 GM=INCH) PACKET TP ONE (01:30)
[2022-05-15] MEDS ORDERED: NITROGLYCERIN 2% (1 GM=INCH) PACKET TP PRN (01:30)
[2022-05-15] MEDS: INSULIN GLARGINE,HUM.REC.ANLOG 100 UNITS/ML SQ SCH ×2 (01:31→21:00)
[2022-05-15] MEDS: INSULIN LISPRO 100 UNITS/ML SQ SCH ×3 (06:41→17:01)
[2022-05-15 07:10] LABS: COVID AG,FIA SOURCE NASAL SWAB
[2022-05-15] MEDS: ASPIRIN 81 MG CHEWABLE TABLET PO SCH (09:08)
[2022-05-15] MEDS: MULTIVITAMINS WITH MINERALS, THERAPEUTIC TABLET PO SCH (09:08)
[2022-05-15] MEDS: DOCUSATE SODIUM 100 MG CAPSULE PO SCH ×2 (09:09→21:00)
[2022-05-15] MEDS: METOPROLOL TARTRATE 25 MG TABLET PO SCH ×2 (09:09→21:00)
[2022-05-15] MEDS: ASPIRIN/DIPYRIDAMOLE ER 25/200 MG ER CAPSULE PO SCH ×2 (09:09→21:00)
[2022-05-15] MEDS: LevETIRAcetam 250 MG TABLET PO SCH ×2 (09:09→21:00)
[2022-05-15 09:11] LABS: GLUCOSE,POINT OF CARE 203 MG/DL (70-110)
[2022-05-15] MEDS: LISINOPRIL 20 MG TABLET PO SCH (09:45)
[2022-05-15] MEDS: BRIMONIDINE TARTRATE 0.15% 5 ML OPHTHALMIC SOLUTION OU SCH ×2 (09:48→21:00)
[2022-05-15] MEDS ORDERED: HydrALAZINE HCL 20 MG/ML VIAL IVP PRN (10:00)
[2022-05-15] MEDS: NITROGLYCERIN 2% (1 GM=INCH) PACKET TP SCH ×2 (13:30→19:30)
[2022-05-15] MEDS: TraZODone HCL 100 MG TABLET PO SCH (21:00)
[2022-05-15] MEDS: ATORVASTATIN CALCIUM 40 MG TABLET PO SCH (21:00)
[2022-05-15] MEDS: BIMATOPROST 0.01% 2.5 ML OPHTHALMIC SOLUTION OU SCH (21:00)
[2022-05-15] MEDS: RisperiDONE 2 MG TABLET PO SCH (21:00)
[2022-05-16 00:20] VITALS: BP 142/73
[2022-05-16] MEDS: NITROGLYCERIN 2% (1 GM=INCH) PACKET TP SCH ×4 (00:45→18:05)
[2022-05-16 07:06] LABS: GLUCOMETER DEV NAME(LOC) 5S.2B; GLUCOSE,POINT OF CARE 140 MG/DL (70-110)
[2022-05-16 07:35] VITALS: BP 144/76
[2022-05-16] MEDS: ASPIRIN/DIPYRIDAMOLE ER 25/200 MG ER CAPSULE PO SCH ×2 (08:17→21:03)
[2022-05-16] MEDS: ASPIRIN 81 MG CHEWABLE TABLET PO SCH (08:17)
[2022-05-16] MEDS: METOPROLOL TARTRATE 25 MG TABLET PO SCH ×2 (08:17→21:03)
[2022-05-16] MEDS: LISINOPRIL 20 MG TABLET PO SCH (08:17)
[2022-05-16] MEDS: INSULIN LISPRO 100 UNITS/ML SQ SCH ×3 (08:30→17:54)
[2022-05-16] MEDS: LevETIRAcetam 250 MG TABLET PO SCH ×2 (08:35→21:03)
[2022-05-16] MEDS: MULTIVITAMINS WITH MINERALS, THERAPEUTIC TABLET PO SCH (08:35)
[2022-05-16] MEDS: DOCUSATE SODIUM 100 MG CAPSULE PO SCH ×2 (08:35→21:03)
[2022-05-16] MEDS: BRIMONIDINE TARTRATE 0.15% 5 ML OPHTHALMIC SOLUTION OU SCH ×2 (08:36→21:04)
[2022-05-16 10:56] VITALS: BP 116/64
[2022-05-16 15:34] VITALS: BP 161/70
[2022-05-16 17:16] LABS: GLUCOMETER DEV NAME(LOC) 5S.1B; GLUCOSE,POINT OF CARE 344 MG/DL (70-110)
[2022-05-16 20:34] VITALS: BP 152/75
[2022-05-16] MEDS: RisperiDONE 2 MG TABLET PO SCH (21:03)
[2022-05-16] MEDS: ATORVASTATIN CALCIUM 40 MG TABLET PO SCH (21:03)
[2022-05-16] MEDS: INSULIN GLARGINE,HUM.REC.ANLOG 100 UNITS/ML SQ SCH (21:03)
[2022-05-16] MEDS: TraZODone HCL 100 MG TABLET PO SCH (21:03)
[2022-05-16] MEDS: BIMATOPROST 0.01% 2.5 ML OPHTHALMIC SOLUTION OU SCH (21:39)
[2022-05-17 00:43] VITALS: BP 100/48
[2022-05-17] MEDS: NITROGLYCERIN 2% (1 GM=INCH) PACKET TP SCH ×3 (00:47→16:29)
[2022-05-17 05:26] VITALS: BP 118/55
[2022-05-17] MEDS: INSULIN LISPRO 100 UNITS/ML SQ SCH ×3 (06:47→17:37)
[2022-05-17 07:31] VITALS: BP 128/50
[2022-05-17] MEDS: ASPIRIN 81 MG CHEWABLE TABLET PO SCH ×2 (09:00→09:08)
[2022-05-17] MEDS: LISINOPRIL 10 MG TABLET PO SCH ×2 (09:00→09:09)
[2022-05-17] MEDS: MULTIVITAMINS WITH MINERALS, THERAPEUTIC TABLET PO SCH ×2 (09:00→09:09)
[2022-05-17] MEDS ORDERED: ASPIRIN 81 MG CHEWABLE TABLET PO SCH (09:00)
[2022-05-17] MEDS: METOPROLOL TARTRATE 25 MG TABLET PO SCH (09:10)
[2022-05-17] MEDS: DOCUSATE SODIUM 100 MG CAPSULE PO SCH (09:10)
[2022-05-17] MEDS: LevETIRAcetam 250 MG TABLET PO SCH (09:10)
[2022-05-17] MEDS: ASPIRIN/DIPYRIDAMOLE ER 25/200 MG ER CAPSULE PO SCH (09:11)
[2022-05-17] MEDS: BRIMONIDINE TARTRATE 0.15% 5 ML OPHTHALMIC SOLUTION OU SCH (09:12)
[2022-05-17] MEDS ORDERED: INSLAN SQ (10:40)
[2022-05-17] MEDS ORDERED: METO25 PO (10:40)
[2022-05-17] MEDS ORDERED: LISI-893 PO (10:40)
[2022-05-17 12:00] VITALS: BP 122/60
[2022-05-17 16:01] VITALS: BP 156/74
== END 2022-05-17 18:30 | disposition home or self-care (01) | DRG 420 ==
LOC: EMS 18:28 → 5S 05-15 16:11
PROVIDERS: ADMIT Internal Medicine; ATTEND Internal Medicine
DX: E11.00 Type 2 diabetes mellitus with hyperosmolarity without nonketotic hyperglycemic-hyperosmolar coma (NKHHC) (principal); G93.41 Metabolic encephalopathy; I21.A1 Myocardial infarction type 2; E78.5 Hyperlipidemia, unspecified; I10 Essential (primary) hypertension; I16.0 Hypertensive urgency; F20.9 Schizophrenia, unspecified; Z20.822 Contact with and (suspected) exposure to COVID-19; G40.909 Epilepsy, unspecified, not intractable, without status epilepticus; I25.2 Old myocardial infarction; Z79.4 Long term (current) use of insulin; Z79.82 Long term (current) use of aspirin; Z79.899 Other long term (current) drug therapy; Z82.49 Family history of ischemic heart disease and other diseases of the circulatory system; Z87.891 Personal history of nicotine dependence; Z88.2 Allergy status to sulfonamides; Z68.1 Body mass index [BMI] 19.9 or less, adult
CPT/HCPCS: 71045; 80053; 82962; 83880; 84484; 85025; 85610; 85730; 93005; 93306; 97162; 99285; G0378; J0360; J1815; J2060; J7030; 36415-L1; 36415-TC

== ENCOUNTER 2022-07-23 12:05 | Inpatient (IN) | payer MEDICARE, OTHER ==
[~2022-07-23] VITALS: Ht 162.6 cm; Wt 45.9 kg
[~2022-07-23 12:05] MED LIST changes: +LISI-893 PO; +METO25 PO
[2022-07-23] MEDS ORDERED: SODIUM CHLORIDE 0.9% 1,000 ML IV ONE (12:15)
[2022-07-23] MEDS ORDERED: INSULIN REGULAR, HUMAN 100 UNITS/ML IVP ONE ×2 (14:00→14:45)
[2022-07-23 14:46] LABS: GLUCOSE,POINT OF CARE 354 MG/DL (70-110)
[2022-07-23 15:01] LABS: BASOPHILS % (AUTO) 0.7 % (0.0-2.0); EOSINOPHILS % (AUTO) 0.5 % (1.0-6.0); HEMATOCRIT 43.6 % (36-46); HEMOGLOBIN 14.5 g/dL (12.0-16.0); LYMPHOCYTES # (AUTO) 1.2 K/uL (1.0-4.8); LYMPHOCYTES % (AUTO) 14.9 % (22.0-44.0); MEAN CORPUSCULAR HEMOGLOBIN 29.4 pg (26.0-34.0); MEAN CORPUSCULAR HGB CONC 33.2 G/dL (31.0-37.0); MEAN CORPUSCULAR VOLUME 89 fL (80-100); MONOCYTES # (AUTO) 0.1 K/uL (0.1-1.0); MONOCYTES % (AUTO) 1.3 % (2.0-9.0); NEUTROPHILS # (AUTO) 6.8 K/uL (1.8-7.7); NEUTROPHILS % (AUTO) 82.6 % (40.0-70.0); PLATELET COUNT (AUTO) 359 K/uL (150-450); RED BLOOD CELL COUNT(AUTO) 4.92 MIL/uL (4.00-5.20); RED CELL DISTRIBUTION WIDTH 15.3 % (11.5-14.5)
[2022-07-23 15:11] LABS: ANION GAP 9 mmol/L (8-16); CALCIUM, TOTAL 9.3 mg/dL (8.8-10.5); CARBON DIOXIDE 26 mmol/L (22-29); CHLORIDE 100 mmol/L (98-107); CREATININE 1.05 mg/dL (0.60-1.30); GLOMERULAR FILTR. RATE CALC > 60 mL/min (>60); GLUCOSE,RANDOM 327 mg/dL (70-110); POTASSIUM 4.5 mmol/L (3.5-5.1); SODIUM SERUM 135 mmol/L (136-145); UREA NITROGEN, BLOOD 24 mg/dL (7-18)
[2022-07-23 15:18] LABS: ALANINE AMINOTRANSFERASE 15 U/L (12-78); ALBUMIN 3.1 g/dL (3.4-5.0); ALKALINE PHOSPHATASE 104 U/L (46-116); ASPARTATE AMINOTRANSFERASE 11 U/L (15-37); BILIRUBIN,TOTAL 0.2 mg/dL (0.1-1.0); TOTAL PROTEIN, SERUM 7.6 g/dL (6.4-8.2)
[2022-07-23 15:20] LABS: B-TYPE NATRIURETIC PEPTIDE 35 pg/mL (0-100)
[2022-07-23 15:45] LABS: COVID AG,FIA SOURCE NASAL SWAB
[2022-07-23] MEDS ORDERED: HEPARIN SODIUM,PORCINE 5,000 UNITS/ML VIAL IVP PRN ×2 (16:00)
[2022-07-23] MEDS ORDERED: HEPARIN SODIUM,PORCINE 5,000 UNITS/ML VIAL IVP ONE ×2 (16:00)
[2022-07-23 16:11] LABS: INFLUENZA TYPE A NEGATIVE FOR TYPE A (NEGATIVE); INFLUENZA TYPE B NEGATIVE FOR TYPE B (NEGATIVE)
[2022-07-23 16:12] LABS: PROTHROMBIN TIME 11.1 SEC (9.4-11.6)
[2022-07-23] MEDS: HEPARIN SODIUM 25000 UNITS/D5W 250 ML IV PRN ×2 (16:16→23:04)
[2022-07-23 18:06] LABS: GLUCOSE,POINT OF CARE 213 MG/DL (70-110)
[2022-07-23 18:21] VITALS: BP 122/73
[2022-07-23] MEDS: ASPIRIN 81 MG DR TABLET PO SCH (18:41)
[2022-07-23 20:00] VITALS: BP 170/73
[2022-07-23 20:06] LABS: GLUCOMETER DEV NAME(LOC) ERT.5; GLUCOSE,POINT OF CARE 249 MG/DL (70-110)
[2022-07-23] MEDS ORDERED: DEXTROSE 50%-WATER 25 GM/50 ML SYRINGE IVP PRN (20:15)
[2022-07-23] MEDS: INSULIN LISPRO 100 UNITS/ML SQ PRN (20:27)
[2022-07-23] MEDS: METOPROLOL TARTRATE 25 MG TABLET PO SCH (20:28)
[2022-07-23] MEDS: ATORVASTATIN CALCIUM 20 MG TABLET PO SCH (20:28)
[2022-07-23 22:41] LABS: GLUCOMETER DEV NAME(LOC) 5N.1C; GLUCOSE,POINT OF CARE 382 MG/DL (70-110)
[2022-07-24] VITALS: BP 120/59
[2022-07-24 04:55] VITALS: BP 137/71
[2022-07-24] MEDS: ASPIRIN 81 MG DR TABLET PO SCH (08:42)
[2022-07-24] MEDS: METOPROLOL TARTRATE 25 MG TABLET PO SCH ×2 (08:42→21:00)
[2022-07-24] MEDS: LISINOPRIL 10 MG TABLET PO SCH (08:42)
[2022-07-24 10:31] LABS: BASOPHILS % (AUTO) 0.7 % (0.0-2.0); HEMATOCRIT 36.3 % (36-46); HEMOGLOBIN 11.7 g/dL (12.0-16.0); LYMPHOCYTES # (AUTO) 2.6 K/uL (1.0-4.8); LYMPHOCYTES % (AUTO) 30.8 % (22.0-44.0); MEAN CORPUSCULAR HEMOGLOBIN 28.7 pg (26.0-34.0); MEAN CORPUSCULAR HGB CONC 32.2 G/dL (31.0-37.0); MEAN CORPUSCULAR VOLUME 89 fL (80-100); MONOCYTES # (AUTO) 0.6 K/uL (0.1-1.0); MONOCYTES % (AUTO) 7.7 % (2.0-9.0); NEUTROPHILS # (AUTO) 4.9 K/uL (1.8-7.7); NEUTROPHILS % (AUTO) 58.8 % (40.0-70.0); PLATELET COUNT (AUTO) 260 K/uL (150-450); RED BLOOD CELL COUNT(AUTO) 4.08 MIL/uL (4.00-5.20); RED CELL DISTRIBUTION WIDTH 15.4 % (11.5-14.5)
[2022-07-24] MEDS: INSULIN LISPRO 100 UNITS/ML SQ PRN ×2 (11:16→17:44)
[2022-07-24 12:18] VITALS: BP 145/61
[2022-07-24 15:43] VITALS: BP 126/63
[2022-07-24 20:51] LABS: GLUCOMETER DEV NAME(LOC) 5N.1C; GLUCOSE,POINT OF CARE 391 MG/DL (70-110)
[2022-07-24 20:51] LABS: GLUCOMETER DEV NAME(LOC) 5N.1C; GLUCOSE,POINT OF CARE 385 MG/DL (70-110)
[2022-07-24] MEDS ORDERED: ATORVASTATIN CALCIUM 40 MG TABLET PO SCH (21:00)
[2022-07-24] MEDS ORDERED: METOPROLOL TARTRATE 25 MG TABLET PO SCH (21:00)
[2022-07-24] MEDS ORDERED: INSULIN GLARGINE,HUM.REC.ANLOG 100 UNITS/ML SQ SCH (21:00)
[2022-07-24] MEDS: ATORVASTATIN CALCIUM 20 MG TABLET PO SCH (21:00)
[2022-07-24] MEDS ORDERED: BIMATOPROST 0.01% 2.5 ML OPHTHALMIC SOLUTION OU SCH (21:00)
[2022-07-24] MEDS ORDERED: RisperiDONE 2 MG TABLET PO SCH (21:00)
[2022-07-24] MEDS ORDERED: TraZODone HCL 100 MG TABLET PO SCH (21:00)
[2022-07-24] MEDS: DOCUSATE SODIUM 100 MG CAPSULE PO SCH (21:00)
[2022-07-24] MEDS: BRIMONIDINE TARTRATE 0.15% 5 ML OPHTHALMIC SOLUTION OU SCH (21:00)
[2022-07-24] MEDS: ASPIRIN/DIPYRIDAMOLE ER 25/200 MG ER CAPSULE PO SCH (21:00)
[2022-07-24] MEDS: LevETIRAcetam 250 MG TABLET PO SCH (21:00)
[2022-07-25] VITALS: BP 143/62
[2022-07-25 04:00] VITALS: BP 128/63
[2022-07-25 04:26] LABS: GLUCOMETER DEV NAME(LOC) 5N.1C; GLUCOSE,POINT OF CARE 111 MG/DL (70-110)
[2022-07-25] MEDS: INSULIN LISPRO 100 UNITS/ML SQ PRN ×4 (06:11→17:46)
[2022-07-25 07:01] LABS: ALANINE AMINOTRANSFERASE 13 U/L (12-78); ALBUMIN 2.8 g/dL (3.4-5.0); ALKALINE PHOSPHATASE 84 U/L (46-116); ANION GAP 6 mmol/L (8-16); ASPARTATE AMINOTRANSFERASE 13 U/L (15-37); BILIRUBIN,TOTAL 0.1 mg/dL (0.1-1.0); CALCIUM, TOTAL 9.4 mg/dL (8.8-10.5); CARBON DIOXIDE 27 mmol/L (22-29); CHLORIDE 101 mmol/L (98-107); CREATININE 0.87 mg/dL (0.60-1.30); GLUCOSE,RANDOM 197 mg/dL (70-110); POTASSIUM 4.4 mmol/L (3.5-5.1); SODIUM SERUM 134 mmol/L (136-145); TOTAL PROTEIN, SERUM 6.5 g/dL (6.4-8.2); UREA NITROGEN, BLOOD 23 mg/dL (7-18)
[2022-07-25 07:02] LABS: GLOMERULAR FILTR. RATE CALC > 60 mL/min (>60)
[2022-07-25 07:49] VITALS: BP 122/66
[2022-07-25] MEDS: LISINOPRIL 10 MG TABLET PO SCH (09:00)
[2022-07-25] MEDS: ASPIRIN/DIPYRIDAMOLE ER 25/200 MG ER CAPSULE PO SCH (09:00)
[2022-07-25] MEDS ORDERED: ASPIRIN 81 MG CHEWABLE TABLET PO SCH (09:00)
[2022-07-25] MEDS ORDERED: LISINOPRIL 10 MG TABLET PO SCH (09:00)
[2022-07-25] MEDS: LevETIRAcetam 250 MG TABLET PO SCH (09:00)
[2022-07-25] MEDS ORDERED: MULTIVITAMINS WITH MINERALS, THERAPEUTIC TABLET PO SCH (09:00)
[2022-07-25 09:06] LABS: BASOPHILS % (AUTO) 1.2 % (0.0-2.0); EOSINOPHILS % (AUTO) 2.5 % (1.0-6.0); HEMATOCRIT 42.8 % (36-46); HEMOGLOBIN 13.6 g/dL (12.0-16.0); LYMPHOCYTES # (AUTO) 2.4 K/uL (1.0-4.8); LYMPHOCYTES % (AUTO) 30.3 % (22.0-44.0); MEAN CORPUSCULAR HEMOGLOBIN 28.5 pg (26.0-34.0); MEAN CORPUSCULAR HGB CONC 31.8 G/dL (31.0-37.0); MEAN CORPUSCULAR VOLUME 90 fL (80-100); MONOCYTES # (AUTO) 0.7 K/uL (0.1-1.0); MONOCYTES % (AUTO) 9.3 % (2.0-9.0); NEUTROPHILS # (AUTO) 4.4 K/uL (1.8-7.7); NEUTROPHILS % (AUTO) 56.7 % (40.0-70.0); PLATELET COUNT (AUTO) 273 K/uL (150-450); RED BLOOD CELL COUNT(AUTO) 4.78 MIL/uL (4.00-5.20); RED CELL DISTRIBUTION WIDTH 15.4 % (11.5-14.5)
[2022-07-25] MEDS: METOPROLOL TARTRATE 25 MG TABLET PO SCH (09:16)
[2022-07-25] MEDS: BRIMONIDINE TARTRATE 0.15% 5 ML OPHTHALMIC SOLUTION OU SCH (09:16)
[2022-07-25] MEDS: DOCUSATE SODIUM 100 MG CAPSULE PO SCH (09:16)
[2022-07-25] MEDS: ASPIRIN 81 MG DR TABLET PO SCH (09:17)
[2022-07-25 12:45] VITALS: BP 136/45
[2022-07-25] MEDS ORDERED: INSULIN LISPRO 100 UNITS/ML SQ ONE (13:00)
[2022-07-25 13:06] LABS: GLUCOMETER DEV NAME(LOC) 5N.1C; GLUCOSE,POINT OF CARE 401 MG/DL (70-110)
[2022-07-25 13:06] LABS: GLUCOMETER DEV NAME(LOC) 5N.1C; GLUCOSE,POINT OF CARE 423 MG/DL (70-110)
[2022-07-25 13:06] LABS: GLUCOMETER DEV NAME(LOC) 5N.1C; GLUCOSE,POINT OF CARE 189 MG/DL (70-110)
[2022-07-25 16:11] VITALS: BP 132/58
[2022-07-25] MEDS ORDERED: INSNOV SQ (18:07)
== END 2022-07-25 18:55 | disposition home or self-care (01) | DRG 637 ==
LOC: EMS 12:22 → 5S 17:44
PROVIDERS: ADMIT Hospitalist; ATTEND Hospitalist
DX: E11.65 Type 2 diabetes mellitus with hyperglycemia (principal); I21.4 Non-ST elevation (NSTEMI) myocardial infarction; F20.9 Schizophrenia, unspecified; E78.5 Hyperlipidemia, unspecified; I10 Essential (primary) hypertension; G40.909 Epilepsy, unspecified, not intractable, without status epilepticus; Z20.822 Contact with and (suspected) exposure to COVID-19; Z88.2 Allergy status to sulfonamides; Z72.0 Tobacco use; Z82.49 Family history of ischemic heart disease and other diseases of the circulatory system; Z79.899 Other long term (current) drug therapy; Z79.82 Long term (current) use of aspirin; H40.9 Unspecified glaucoma
CPT/HCPCS: 70450; 71045; 80053; 82962; 83880; 84484; 85025; 85610; 85730; 87804; 93005; 99291; G0378; J1644; J1815; J7030; 36415-L1; 36415-TC

== ENCOUNTER 2023-01-28 23:15 | Inpatient (IN) | payer MEDICARE, OTHER ==
[~2023-01-28] VITALS: Ht 162.6 cm; Wt 51.8 kg
[~2023-01-28 23:15] MED LIST changes: +INSNOV SQ
[2023-01-29 01:30] LABS: EOSINOPHILS % (AUTO) 3.4 % (1.0-6.0); HEMATOCRIT 37.7 % (36-46); HEMOGLOBIN 12.4 g/dL (12.0-16.0); LYMPHOCYTES # (AUTO) 2.5 K/uL (1.0-4.8); LYMPHOCYTES % (AUTO) 36.3 % (22.0-44.0); MEAN CORPUSCULAR HEMOGLOBIN 28.5 pg (26.0-34.0); MEAN CORPUSCULAR HGB CONC 32.9 G/dL (31.0-37.0); MEAN CORPUSCULAR VOLUME 87 fL (80-100); MONOCYTES # (AUTO) 0.8 K/uL (0.1-1.0); MONOCYTES % (AUTO) 11.2 % (2.0-9.0); NEUTROPHILS # (AUTO) 3.3 K/uL (1.8-7.7); NEUTROPHILS % (AUTO) 48.1 % (40.0-70.0); PLATELET COUNT (AUTO) 290 K/uL (150-450); RED BLOOD CELL COUNT(AUTO) 4.35 MIL/uL (4.00-5.20); RED CELL DISTRIBUTION WIDTH 16.6 % (11.5-14.5)
[2023-01-29] MEDS ORDERED: DEXTROSE 50%-WATER 25 GM/50 ML SYRINGE IVP ONE (01:30)
[2023-01-29 01:39] LABS: ANION GAP 6 mmol/L (8-16); CALCIUM, TOTAL 9.9 mg/dL (8.8-10.5); CARBON DIOXIDE 29 mmol/L (22-29); CHLORIDE 104 mmol/L (98-107); CREATININE 0.94 mg/dL (0.60-1.30); GLOMERULAR FILTR. RATE CALC > 60 mL/min (>60); GLUCOSE,RANDOM 64 mg/dL (70-110); SODIUM SERUM 139 mmol/L (136-145)
[2023-01-29 01:41] LABS: GLUCOMETER DEV NAME(LOC) ER.6
[2023-01-29 01:43] LABS: ACETONE,BLOOD NEGATIVE (NEGATIVE)
[2023-01-29 01:46] LABS: ALANINE AMINOTRANSFERASE 13 U/L (12-78); ALBUMIN 3.2 g/dL (3.4-5.0); ALKALINE PHOSPHATASE 92 U/L (46-116); ASPARTATE AMINOTRANSFERASE 8 U/L (15-37); BILIRUBIN,TOTAL 0.2 mg/dL (0.1-1.0); CREATINE KINASE, TOTAL ONLY 36 U/L (26-192); LIPASE 56 U/L (73-393); TOTAL PROTEIN, SERUM 7.3 g/dL (6.4-8.2)
[2023-01-29 01:52] LABS: B-TYPE NATRIURETIC PEPTIDE 17 pg/mL (0-100)
[2023-01-29] MEDS ORDERED: ASPIRIN 81 MG CHEWABLE TABLET PO ONE (02:15)
[2023-01-29 02:48] LABS: GLUCOMETER DEV NAME(LOC) ER.6
[2023-01-29] MEDS ORDERED: CloNIDine HCL 0.2 MG TABLET PO ONE (03:15)
[2023-01-29] MEDS ORDERED: DEXTROSE 5%-0.9% SODIUM CHL 1,000 ML IV ONE (03:15)
[2023-01-29] MEDS ORDERED: NITROGLYCERIN 2% (1 GM=INCH) OINTMENT PACKET TP ONE (03:15)
[2023-01-29] MEDS ORDERED: ONDANSETRON HCL 4 MG/2 ML VIAL IVP PRN ×2 (03:30→12:45)
[2023-01-29] MEDS ORDERED: 0.9% SODIUM CHLORIDE 10 ML SYRINGE IVP PRN (03:30)
[2023-01-29] MEDS ORDERED: ACETAMINOPHEN 325 MG TABLET PO PRN ×2 (03:30→12:45)
[2023-01-29 04:45] LABS: APPEARANCE,URINE CLEAR (CLEAR); BILIRUBIN,URINE NEGATIVE (NEGATIVE); GLUCOSE, URINE (UA) >=1000 mg/dL (NEGATIVE); KETONES,URINE NEGATIVE (NEGATIVE); LEUKOCYTE ESTERASE ,URINE NEGATIVE (NEGATIVE); NITRATE,URINE NEGATIVE (NEGATIVE); OCCULT BLOOD,URINE NEGATIVE (NEGATIVE); PROTEIN,URINE NEGATIVE (NEGATIVE); SPECIFIC GRAVITIY, URINE 1.018 (1.003-1.030); UROBILINOGEN,URINE <=1.0 mg/dL (<=1.0)
[2023-01-29 04:56] LABS: BACTERIA,URINE None Seen /HPF (None Seen); RBC,URINE None Seen /HPF (0-2); SQUAMOUS EPITHELIAL CELL,UR None Seen /LPF (None Seen); WBC,URINE None Seen /HPF (0-5)
[2023-01-29 06:43] VITALS: BP 160/78; PULSE 68; RESP 18; TEMP 98.1; O2SAT 100
[2023-01-29 07:18] VITALS: BP 165/90; PULSE 64; RESP 19; TEMP 97.6
[2023-01-29] MEDS: METOPROLOL TARTRATE 25 MG TABLET PO SCH ×2 (08:29→20:30)
[2023-01-29] MEDS: LISINOPRIL 20 MG TABLET PO SCH (08:29)
[2023-01-29] MEDS: ATORVASTATIN CALCIUM 40 MG TABLET PO SCH (08:29)
[2023-01-29] MEDS: ASPIRIN 81 MG CHEWABLE TABLET PO SCH ×2 (08:29→08:33)
[2023-01-29 11:43] VITALS: BP 168/90; PULSE 60; RESP 18; TEMP 97.6
[2023-01-29] MEDS ORDERED: ZOLPIDEM TARTRATE 5 MG TABLET PO PRN (12:45)
[2023-01-29] MEDS ORDERED: DEXTROSE 50%-WATER 25 GM/50 ML SYRINGE IVP PRN (12:45)
[2023-01-29] MEDS ORDERED: BISACODYL 10 MG RECTAL RECTAL SUPPOSITORY PR PRN (12:45)
[2023-01-29] MEDS ORDERED: MORPHINE SULFATE 2 MG/ML SYRINGE IVP PRN (12:45)
[2023-01-29] MEDS ORDERED: MAGNESIUM HYDROXIDE SUSPENSION 30 ML UDCUP PO PRN (12:45)
[2023-01-29] MEDS ORDERED: HYDROCODONE/ACETAMINOPHEN 5-325 MG TABLET PO PRN (12:45)
[2023-01-29 15:18] VITALS: BP 160/80; PULSE 69; RESP 19; TEMP 98.4
[2023-01-29] MEDS: HEPARIN SODIUM,PORCINE 5,000 UNITS/ML VIAL SQ SCH ×2 (17:10→23:35)
[2023-01-29] MEDS: BIMATOPROST 0.01% 2.5 ML OPHTHALMIC SOLUTION OU SCH (20:29)
[2023-01-29] MEDS: POLYETHYLENE GLYCOL 3350 17 GM PACKET PO SCH (20:29)
[2023-01-29] MEDS: TraZODone HCL 100 MG TABLET PO SCH (20:30)
[2023-01-29] MEDS: LevETIRAcetam 250 MG TABLET PO SCH (20:30)
[2023-01-29] MEDS: RisperiDONE 2 MG TABLET PO SCH (20:30)
[2023-01-29] MEDS: INSULIN LISPRO 100 UNITS/ML SQ PRN (20:45)
[2023-01-29 20:56] VITALS: BP 164/65; PULSE 70; RESP 18; TEMP 98.1
[2023-01-29 20:57] LABS: GLUCOMETER DEV NAME(LOC) 5S.1B
[2023-01-29 20:57] LABS: GLUCOMETER DEV NAME(LOC) 5S.1B
[2023-01-29] MEDS: DOCUSATE SODIUM 100 MG CAPSULE PO SCH (21:59)
[2023-01-30] VITALS (7 sets, daily range): BP systolic 129–138; BP diastolic 58–96; PULSE 57–80; RESP 16–20; TEMP 97.3–98.7
[2023-01-30] MEDS: INSULIN LISPRO 100 UNITS/ML SQ PRN ×2 (05:36→21:36)
[2023-01-30 05:47] LABS: GLUCOMETER DEV NAME(LOC) 5S.1B
[2023-01-30 07:26] LABS: EOSINOPHILS % (AUTO) 3.9 % (1.0-6.0); HEMATOCRIT 35.9 % (36-46); HEMOGLOBIN 11.7 g/dL (12.0-16.0); LYMPHOCYTES # (AUTO) 2.3 K/uL (1.0-4.8); LYMPHOCYTES % (AUTO) 32.3 % (22.0-44.0); MEAN CORPUSCULAR HEMOGLOBIN 28.4 pg (26.0-34.0); MEAN CORPUSCULAR HGB CONC 32.5 G/dL (31.0-37.0); MEAN CORPUSCULAR VOLUME 88 fL (80-100); MONOCYTES # (AUTO) 0.5 K/uL (0.1-1.0); MONOCYTES % (AUTO) 7.2 % (2.0-9.0); NEUTROPHILS # (AUTO) 3.9 K/uL (1.8-7.7); NEUTROPHILS % (AUTO) 55.6 % (40.0-70.0); PLATELET COUNT (AUTO) 203 K/uL (150-450); RED CELL DISTRIBUTION WIDTH 16.6 % (11.5-14.5)
[2023-01-30 07:46] LABS: ANION GAP 8 mmol/L (8-16); CALCIUM, TOTAL 9.3 mg/dL (8.8-10.5); CARBON DIOXIDE 24 mmol/L (22-29); CHLORIDE 103 mmol/L (98-107); CREATININE 0.89 mg/dL (0.60-1.30); GLOMERULAR FILTR. RATE CALC > 60 mL/min (>60); GLUCOSE,RANDOM 164 mg/dL (70-110); POTASSIUM 4.6 mmol/L (3.5-5.1); SODIUM SERUM 135 mmol/L (136-145)
[2023-01-30] MEDS ORDERED: AmLODIPine BESYLATE 5 MG TABLET PO SCH (09:00)
[2023-01-30] MEDS: DOCUSATE SODIUM 100 MG CAPSULE PO SCH ×2 (09:14→20:44)
[2023-01-30] MEDS: ATORVASTATIN CALCIUM 40 MG TABLET PO SCH (09:14)
[2023-01-30] MEDS: LevETIRAcetam 250 MG TABLET PO SCH ×2 (09:14→20:44)
[2023-01-30] MEDS: ASPIRIN 81 MG CHEWABLE TABLET PO SCH (09:14)
[2023-01-30] MEDS: METOPROLOL TARTRATE 25 MG TABLET PO SCH ×2 (09:15→20:45)
[2023-01-30] MEDS: POLYETHYLENE GLYCOL 3350 17 GM PACKET PO SCH ×2 (09:16→20:42)
[2023-01-30] MEDS: HEPARIN SODIUM,PORCINE 5,000 UNITS/ML VIAL SQ SCH ×3 (09:16→23:10)
[2023-01-30] MEDS: BISACODYL 10 MG RECTAL RECTAL SUPPOSITORY PR SCH (09:16)
[2023-01-30] MEDS: PANTOPRAZOLE SODIUM 40 MG DR TABLET PO SCH (09:16)
[2023-01-30] MEDS: LISINOPRIL 20 MG TABLET PO SCH (10:19)
[2023-01-30] MEDS ORDERED: MINERAL OIL 133 ML ENEMA PR ONE (11:15)
[2023-01-30 14:02] LABS: GLUCOMETER DEV NAME(LOC) 5S.1B
[2023-01-30 19:37] LABS: GLUCOMETER DEV NAME(LOC) 5S.1B
[2023-01-30] MEDS: RisperiDONE 2 MG TABLET PO SCH (20:42)
[2023-01-30] MEDS: BIMATOPROST 0.01% 2.5 ML OPHTHALMIC SOLUTION OU SCH (20:42)
[2023-01-30] MEDS: TraZODone HCL 100 MG TABLET PO SCH (20:43)
[2023-01-31 00:57] LABS: GLUCOMETER DEV NAME(LOC) 5S.1B
[2023-01-31 04:36] VITALS: BP 166/103; PULSE 68; RESP 16; TEMP 98
[2023-01-31] MEDS: INSULIN LISPRO 100 UNITS/ML SQ PRN ×2 (06:36→12:06)
[2023-01-31 06:41] LABS: GLUCOMETER DEV NAME(LOC) 5S.1B
[2023-01-31 07:15] VITALS: BP 148/75; PULSE 60; RESP 18; TEMP 98.1
[2023-01-31] MEDS: ATORVASTATIN CALCIUM 40 MG TABLET PO SCH (09:00)
[2023-01-31] MEDS: PANTOPRAZOLE SODIUM 40 MG DR TABLET PO SCH (09:00)
[2023-01-31] MEDS: METOPROLOL TARTRATE 25 MG TABLET PO SCH (09:00)
[2023-01-31] MEDS: ASPIRIN 81 MG CHEWABLE TABLET PO SCH (09:00)
[2023-01-31] MEDS: BISACODYL 10 MG RECTAL RECTAL SUPPOSITORY PR SCH (09:00)
[2023-01-31] MEDS ORDERED: AmLODIPine BESYLATE 5 MG TABLET PO SCH (09:00)
[2023-01-31] MEDS: HEPARIN SODIUM,PORCINE 5,000 UNITS/ML VIAL SQ SCH (09:00)
[2023-01-31] MEDS: DOCUSATE SODIUM 100 MG CAPSULE PO SCH (09:01)
[2023-01-31] MEDS: POLYETHYLENE GLYCOL 3350 17 GM PACKET PO SCH (09:01)
[2023-01-31] MEDS: LISINOPRIL 20 MG TABLET PO SCH (09:01)
[2023-01-31] MEDS: LevETIRAcetam 250 MG TABLET PO SCH (09:03)
[2023-01-31 11:35] VITALS: BP 133/83; PULSE 60; RESP 18; TEMP 98.3
[2023-01-31] MEDS ORDERED: AMLO-257 PO (12:17)
[2023-01-31] MEDS ORDERED: BISA10SU11 PR (12:55)
[2023-01-31] MEDS ORDERED: POLY17PO47 PO (12:56)
[2023-01-31] MEDS ORDERED: LACT10SO10 PO (12:57)
[2023-01-31] MEDS ORDERED: INSLAN SQ (12:58)
[2023-01-31] MEDS ORDERED: METO25 PO (13:00)
[2023-01-31] MEDS ORDERED: LISI-894 PO (13:02)
[2023-01-31 20:46] LABS: GLUCOMETER DEV NAME(LOC) 5S.1B
== END 2023-01-31 14:50 | disposition home health service (06) | DRG 392 ==
LOC: EMS 23:16 → ICUN 01-29 05:00 → 5N 01-29 05:30
PROVIDERS: ADMIT Internal Medicine; ATTEND Internal Medicine
DX: K59.00 Constipation, unspecified (principal); E11.649 Type 2 diabetes mellitus with hypoglycemia without coma; I16.0 Hypertensive urgency; E78.5 Hyperlipidemia, unspecified; G40.909 Epilepsy, unspecified, not intractable, without status epilepticus; F20.9 Schizophrenia, unspecified; R77.8 Other specified abnormalities of plasma proteins; I10 Essential (primary) hypertension; R00.1 Bradycardia, unspecified; E86.0 Dehydration; T38.3X5A Adverse effect of insulin and oral hypoglycemic [antidiabetic] drugs, initial encounter; Z79.4 Long term (current) use of insulin; Z79.82 Long term (current) use of aspirin; Z87.891 Personal history of nicotine dependence; Z88.2 Allergy status to sulfonamides; Y92.89 Other specified places as the place of occurrence of the external cause; Z79.899 Other long term (current) drug therapy
CPT/HCPCS: 71045; 74019; 74176; 80048; 80053; 81001; 82009; 82550; 82962; 83036; 83690; 83880; 84484; 85025; 93005; 99285; J1644; J7042; 36415-L1; 36415-TC

== ENCOUNTER 2023-04-23 00:46 | Inpatient (IN) | payer MEDICARE, OTHER ==
[~2023-04-23] VITALS: Ht 157.5 cm; Wt 47.5 kg
[~2023-04-23 00:46] MED LIST changes: +AMLO-257 PO; +ASPI1CPM21 PO; -ASPI1CPM8 PO; +BISA10SU11 PR; +CLON.3P TD; -DOCU-385 PO; +FAMO20 PO; -INSNOV SQ; +INSU100I47 SQ; +LACT10SO10 PO; -LISI-893 PO; +LISI-894 PO; -METO25 PO; -MULT-248 PO; +OLAN5TAB77 PO; +POLY17PO47 PO; +PROP20TA96 PO; +PROP60CA2 PO
[2023-04-23] MEDS ORDERED: DEXTROSE 50%-WATER 25 GM/50 ML SYRINGE IVP ONE (01:00)
[2023-04-23 01:19] LABS: BASOPHILS % (AUTO) 0.8 % (0.0-2.0); EOSINOPHILS % (AUTO) 7.4 % (1.0-6.0); HEMATOCRIT 31.3 % (36-46); HEMOGLOBIN 10.1 g/dL (12.0-16.0); LYMPHOCYTES # (AUTO) 1.6 K/uL (1.0-4.8); LYMPHOCYTES % (AUTO) 24.8 % (22.0-44.0); MEAN CORPUSCULAR HEMOGLOBIN 27.8 pg (26.0-34.0); MEAN CORPUSCULAR HGB CONC 32.4 G/dL (31.0-37.0); MEAN CORPUSCULAR VOLUME 86 fL (80-100); MONOCYTES # (AUTO) 1.2 K/uL (0.1-1.0); MONOCYTES % (AUTO) 18.3 % (2.0-9.0); NEUTROPHILS # (AUTO) 3.2 K/uL (1.8-7.7); NEUTROPHILS % (AUTO) 48.7 % (40.0-70.0); PLATELET COUNT (AUTO) 377 K/uL (150-450); RED BLOOD CELL COUNT(AUTO) 3.64 MIL/uL (4.00-5.20); RED CELL DISTRIBUTION WIDTH 16.7 % (11.5-14.5); WHITE BLOOD COUNT (AUTO) 6.6 K/uL (4.5-11.0)
[2023-04-23 01:28] LABS: CALCIUM, TOTAL 9.6 mg/dL (8.8-10.5); CREATININE 1.11 mg/dL (0.60-1.30); POTASSIUM 3.3 mmol/L (3.5-5.1)
[2023-04-23 01:34] LABS: ALBUMIN 2.3 g/dL (3.4-5.0); TOTAL PROTEIN, SERUM 6.7 g/dL (6.4-8.2)
[2023-04-23 01:36] LABS: BILIRUBIN,TOTAL 0.1 mg/dL (0.1-1.0)
[2023-04-23 01:37] LABS: TROPONIN I-HIGH SENSITIVITY 159 ng/L (<51)
[2023-04-23 03:56] LABS: GLUCOMETER DEV NAME(LOC) ERT.5; GLUCOSE,POINT OF CARE 233 MG/DL (70-110)
[2023-04-23 03:56] LABS: GLUCOMETER DEV NAME(LOC) ERT.5; GLUCOSE,POINT OF CARE 190 MG/DL (70-110)
[2023-04-23] MEDS ORDERED: DEXTROSE 5%-0.9% SODIUM CHL 1,000 ML IV ONE (04:00)
[2023-04-23 04:33] LABS: COVID AG,FIA SOURCE NASAL SWAB
[2023-04-23] MEDS ORDERED: ONDANSETRON HCL 4 MG/2 ML VIAL IVP PRN (04:45)
[2023-04-23] MEDS ORDERED: 0.9% SODIUM CHLORIDE 10 ML SYRINGE IVP PRN (04:45)
[2023-04-23] MEDS ORDERED: ACETAMINOPHEN 325 MG TABLET PO PRN (04:45)
[2023-04-23 04:54] LABS: SARS-COV2 (COVID) ANTIGEN,FIA Negative (Negative)
[2023-04-23 05:31] LABS: GLUCOMETER DEV NAME(LOC) ERT.5; GLUCOSE,POINT OF CARE 185 MG/DL (70-110)
[2023-04-23 05:57] VITALS: BP 172/79; PULSE 66; RESP 14; TEMP 97.6
[2023-04-23] MEDS ORDERED: HydrALAZINE HCL 20 MG/ML VIAL IVP ONE (06:15)
[2023-04-23 07:45] VITALS: BP 168/74; PULSE 68; RESP 18; TEMP 97.2
[2023-04-23] MEDS ORDERED: DEXTROSE 50%-WATER 25 GM/50 ML SYRINGE IVP PRN (08:00)
[2023-04-23] MEDS: BRIMONIDINE TARTRATE 0.15% 5 ML OPHTHALMIC SOLUTION OU SCH ×2 (08:48→20:23)
[2023-04-23] MEDS: HYDROCODONE/ACETAMINOPHEN 5-325 MG TABLET PO PRN ×3 (08:48→17:35)
[2023-04-23] MEDS: AmLODIPine BESYLATE 5 MG TABLET PO SCH ×2 (08:49→20:21)
[2023-04-23] MEDS: LISINOPRIL 20 MG TABLET PO SCH (08:49)
[2023-04-23] MEDS: PROPRANOLOL HCL 20 MG TABLET PO SCH ×2 (08:49→20:21)
[2023-04-23] MEDS: OLANZapine 5 MG TABLET PO SCH ×2 (08:49→20:21)
[2023-04-23] MEDS: FAMOTIDINE 20 MG TABLET PO SCH (08:49)
[2023-04-23] MEDS: LevETIRAcetam 250 MG TABLET PO SCH ×2 (08:49→20:21)
[2023-04-23] MEDS: LACTULOSE 20 GM/30 ML SOLUTION UDCUP PO SCH (08:52)
[2023-04-23] MEDS: ASPIRIN/DIPYRIDAMOLE ER 25/200 MG ER CAPSULE PO SCH ×3 (08:52→22:00)
[2023-04-23] MEDS ORDERED: CloNIDine 0.3 MG/24 HOUR PATCH TD SCH (09:00)
[2023-04-23] MEDS ORDERED: DEXTROSE 5%-0.45% SODIUM CHL 1,000 ML IV SCH (09:30)
[2023-04-23 11:06] VITALS: BP 145/54; PULSE 73; RESP 16; TEMP 97.4
[2023-04-23 14:30] VITALS: BP 158/68; PULSE 72; RESP 18; TEMP 97.8
[2023-04-23 17:57] LABS: GLUCOMETER DEV NAME(LOC) 5N.2C; GLUCOSE,POINT OF CARE 250 MG/DL (70-110)
[2023-04-23 17:57] LABS: GLUCOMETER DEV NAME(LOC) 5N.2C; GLUCOSE,POINT OF CARE 180 MG/DL (70-110)
[2023-04-23] MEDS ORDERED: RisperiDONE 2 MG TABLET PO SCH (21:00)
[2023-04-23] MEDS ORDERED: ATORVASTATIN CALCIUM 40 MG TABLET PO SCH (21:00)
[2023-04-23] MEDS ORDERED: TraZODone HCL 100 MG TABLET PO SCH (21:00)
[2023-04-23 21:01] VITALS: BP 171/69; PULSE 70; RESP 20; TEMP 97.4
[2023-04-23] MEDS: INSULIN LISPRO 100 UNITS/ML SQ PRN (21:10)
[2023-04-24 00:16] LABS: GLUCOMETER DEV NAME(LOC) 5S.1B; GLUCOSE,POINT OF CARE 181 MG/DL (70-110)
[2023-04-24 00:19] VITALS: BP 126/63; PULSE 56; RESP 20; TEMP 97.5
[2023-04-24 04:58] VITALS: BP 130/77; PULSE 70; RESP 20; TEMP 98.4
[2023-04-24 07:17] VITALS: BP 157/78; PULSE 72; RESP 18; TEMP 97.8
[2023-04-24 08:12] LABS: GLUCOMETER DEV NAME(LOC) 5N.2C; GLUCOSE,POINT OF CARE 193 MG/DL (70-110)
[2023-04-24] MEDS: LISINOPRIL 20 MG TABLET PO SCH (08:46)
[2023-04-24] MEDS: AmLODIPine BESYLATE 5 MG TABLET PO SCH (08:46)
[2023-04-24] MEDS: FAMOTIDINE 20 MG TABLET PO SCH (08:46)
[2023-04-24] MEDS: OLANZapine 5 MG TABLET PO SCH (08:47)
[2023-04-24] MEDS: LevETIRAcetam 250 MG TABLET PO SCH (08:47)
[2023-04-24] MEDS: PROPRANOLOL HCL 20 MG TABLET PO SCH (08:47)
[2023-04-24] MEDS: LACTULOSE 20 GM/30 ML SOLUTION UDCUP PO SCH (08:48)
[2023-04-24] MEDS: BRIMONIDINE TARTRATE 0.15% 5 ML OPHTHALMIC SOLUTION OU SCH (10:13)
[2023-04-24 11:13] VITALS: BP 154/74; PULSE 73; RESP 18; TEMP 98
[2023-04-24] MEDS: INSULIN LISPRO 100 UNITS/ML SQ PRN (12:19)
[2023-04-24 15:16] VITALS: BP 151/62; PULSE 68; RESP 14; TEMP 98.7
[2023-04-24 16:50] LABS: GLUCOMETER DEV NAME(LOC) 5N.2C; GLUCOSE,POINT OF CARE 251 MG/DL (70-110)
== END 2023-04-24 17:45 | DRG 637 ==
LOC: EMS 00:47 → UNDOADMIN 04:00 → 5S 04:00 → 6S 04:00
PROVIDERS: ADMIT Hospitalist; ATTEND Hospitalist
DX: E11.649 Type 2 diabetes mellitus with hypoglycemia without coma (principal); E43 Unspecified severe protein-calorie malnutrition; G93.41 Metabolic encephalopathy; Z68.1 Body mass index [BMI] 19.9 or less, adult; F03.90 Unspecified dementia, unspecified severity, without behavioral disturbance, psychotic disturbance, mood disturbance, and anxiety; E78.5 Hyperlipidemia, unspecified; H40.9 Unspecified glaucoma; E11.65 Type 2 diabetes mellitus with hyperglycemia; I10 Essential (primary) hypertension; F99 Mental disorder, not otherwise specified; Z20.822 Contact with and (suspected) exposure to COVID-19; E11.319 Type 2 diabetes mellitus with unspecified diabetic retinopathy without macular edema; E11.40 Type 2 diabetes mellitus with diabetic neuropathy, unspecified; H54.8 Legal blindness, as defined in USA; T38.3X5A Adverse effect of insulin and oral hypoglycemic [antidiabetic] drugs, initial encounter; Z82.49 Family history of ischemic heart disease and other diseases of the circulatory system; Z88.2 Allergy status to sulfonamides; Y92.89 Other specified places as the place of occurrence of the external cause; Z86.73 Personal history of transient ischemic attack (TIA), and cerebral infarction without residual deficits; Z79.899 Other long term (current) drug therapy
CPT/HCPCS: 71045; 80053; 82550; 82962; 83880; 84484; 85025; 93005; 99291; G0378; J0360; J7042; 36415-L1; 36415-TC